=== PATIENT | female | born 1965 | race Two or more races ===

== ENCOUNTER 2016-08-18 07:52 | Day surgery (SDC) | payer MEDICARE ==
[~2016-08-18 07:52] MED LIST: DIPHENHYDRAMINE HCL 50 MG/ML VIAL ONE; EPINEPHRINE INJ 1 MG/10 ML DISP.SYRIN ONE; FLUMAZENIL INJ 0.5 MG/5 ML VIAL IV ONE; GLUCAGON,HUMAN RECOMB 1 MG INJ ONE; MIDAZOLAM 2 MG/2 ML INJ ONE; NALOXONE HCL INJ/PF 0.4 MG/1 ML SDV ONE; ONDANSETRON HCL INJ/PF 4 MG/2 ML SDV ONE
[2016-08-18] MEDS: MIDAZOLAM 2 MG/2 ML INJ ONE ×4 (08:40→08:52)
[2016-08-18] MEDS: FENTANYL CITRATE INJ/PF 100 MCG/2 ML AMPUL ONE ×4 (08:42→09:02)
--- NOTE | 2016-08-18 09:13 | Operative Report ---
Operative Report DATE OF SURGERY: 08/18/16 Operative Report: The risks, benefits and alternatives of the procedure including risks of bleeding, perforation requiring surgery are explained to the patient detail and informed consent was obtained. Patient was taken to the endoscopy suite and placed in the left, lateral decubital position. A rectal examination was done which did not reveal any masses, tears or fissures. Timeout was called. Conscious sedation medications provided. The Olympus videoscope was inserted into the patient's rectum. The scope was then gradually advanced all the way to the cecum. The cecum was identified by the usual anatomical landmarks of the ileocecal valve as well as the appendiceal orifice and photodocumentation was obtained. The scope was then sequentially pulled back. The rest of the colon including the ascending colon, hepatic flexure, transverse colon, splenic flexure, descending colon and finally to the rectosigmoid portions of the colon. Retroflexion maneuver was performed. Prep is good. Photodocumentation was obtained. The risks benefits and alternatives of the procedure explained to the patient in detail and informed consent is obtained. A GIF Olympus video scope was inserted into the patient's mouth and hypopharynx ,the esophagus is identified intubated and insufflated, the scope was then advanced through the esophagus stomach and duodenum ,retroflexion maneuver is done the esophagus stomach and first and second portions of the duodenum examined PREOPERATIVE DIAGNOSIS: Personal history of polyps. Gastroesophageal reflux disease POSTOPERATIVE DIAGNOSIS: Status post gastric bypass operation in the past. Gastritis. Mild left-sided inflammation status post biopsy. Internal hemorrhoids. Likely intra-abdominal adhesions OPERATION: Colonoscopy with biopsy. EGD with biopsy SURGEON: LINDA CAPPS ANESTHESIA: Moderate Sedation - 5 mg of Versed, 125 mcg of fentanyl. Conscious sedation monitoring time 30 minutes. TISSUE REMOVED OR ALTERED: Gastric specimen obtained. colon Mucosal specimen obtained COMPLICATIONS: None. ESTIMATED BLOOD LOSS: None. INTRAOPERATIVE FINDINGS: As described above. No masses, AVMs or diverticulosis noted. Abdominal pressure had to be placed in the area of the splenic flexure careful advancement of the scope. She has a midline abdominal scar she likely has abdominal adhesions causing some difficulty with advancement of the scope. PROCEDURE: Patient tolerated procedure well. No immediate postprocedure complications are noted. Patient is discharged in good condition. Discharge date 08/18/2016. Discharge diet: Regular. Discharge activity: Regular. 2-3 week follow-up to discuss findings. We will wait on pathology. 10 year surveillance should be adequate. Patient is instructed to call the office or proceed to the emergency room should there be any further problems or questions.
[2016-08-18 10:15] VITALS: BP 99/52
== END 2016-08-18 10:15 | disposition home or self-care (01) ==
LOC: END 07:52
PROVIDERS: ATTEND Internal Medicine Gastroenterology
PROC: 0DB68ZX Excision of Stomach, Via Natural or Artificial Opening Endoscopic, Diagnostic (ICD-10-PCS; principal; 2016-08-18 08:30)
PROC: 0DBG8ZX Excision of Left Large Intestine, Via Natural or Artificial Opening Endoscopic, Diagnostic (ICD-10-PCS; 2016-08-18 08:30)
DX: K21.9 Gastro-esophageal reflux disease without esophagitis (principal); K92.1 Melena; K52.9 Noninfective gastroenteritis and colitis, unspecified; K64.8 Other hemorrhoids; Z98.84 Bariatric surgery status; K29.50 Unspecified chronic gastritis without bleeding; K63.5 Polyp of colon; I10 Essential (primary) hypertension; E55.9 Vitamin D deficiency, unspecified; F41.9 Anxiety disorder, unspecified; K91.2 Postsurgical malabsorption, not elsewhere classified; Y83.8 Other surgical procedures as the cause of abnormal reaction of the patient, or of later complication, without mention of misadventure at the time of the procedure; Y82.8 Other medical devices associated with adverse incidents; Z79.899 Other long term (current) drug therapy
CPT/HCPCS: 43239; 45380; 88342 ×2; 88305 ×2; J2250; J3010; J0171; J1200; J1610; J2310; J2405; J3490

== ENCOUNTER → 2016-12-26 | Outpatient (CLI) | payer MEDICARE | LOC: WI 09:41 | PROVIDERS: ATTEND Family Medicine | DX: N63 Unspecified lump in breast (principal); Z53.8 Procedure and treatment not carried out for other reasons ==

== ENCOUNTER 2017-09-05 10:13 | Emergency (ER) | payer MEDICARE ==
--- NOTE | 2017-09-05 10:39 | ER Document Report ---
ED GI/ - General Stated Complaint: ABDOMINAL PAIN Time Seen by Provider: 09/05/17 10:33 Notes: Patient says that she is experiencing epigastric pain which began this morning while she was taking a walk. Pain is located primarily in the epigastric region , just above the umbilicus. She is vomited 5 times this morning, but does not feel nauseated now. She had a diarrhea bowel movement at about 7 AM. Did not see any blood in either the vomitus or the bowel movement. Patient has experienced pain like this intermittently every few weeks since she had gastric bypass surgery in 2006. She had that procedure performed in [place]. She was last seen by those doctors last January or March. She currently has bottles of medication for constipation and diarrhea and EMS was told patient does have a history of IBS. Also has GERD. Patient has had an abdominal surgery for blockage about 12 years ago. Tubes tied. Cholecystectomy. On scene, patient's son told EMS patient has a history of diverticulitis, but patient does not recognize that word. Denies any chest pains, difficulty breathing or shortness of breath, urinary tract symptoms, or fevers. Insulin-dependent diabetic. History of anxiety. Patient is and speaks good, understandable Mongolian. 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 TRAVEL OUTSIDE OF THE [place] IN LAST 30 DAYS: No - Related Data Allergies/Adverse Reactions: Penicillins Allergy (Severe, Verified 08/18/16 08:28) Anaphylaxis morphine Allergy (Intermediate, Verified 08/18/16 08:28) Generalized rash Past Medical History - Social History Smoking Status: Unknown if Ever Smoked Cigarette use (# per day): No Frequency of alcohol use: None Family History: Reviewed & Not Pertinent - Past Medical History Cardiac Medical History: Reports: Hx Hypertension GI Medical History: Reports: Hx Diverticulitis, Hx Gastroesophageal Reflux Disease, Hx Irritable Bowel Musculoskeltal Medical History: Denies Hx Arthritis Psychiatric Medical History: Reports: Hx Anxiety, Hx Depression Past Surgical History: Reports: Hx Abdominal Surgery, Hx Appendectomy, Hx Cholecystectomy, Hx Gastric Bypass Surgery, Hx Tubal Ligation. Denies: Hx Hysterectomy - Immunizations Hx Diphtheria, Pertussis, Tetanus Vaccination: No Review of Systems - Review of Systems Notes: REVIEW OF SYSTEMS: CONSTITUTIONAL : Denies fever. EENT: Denies eye, ear, nose or mouth or throat pain or other symptoms. CARDIOVASCULAR: Denies chest pain. RESPIRATORY: Denies cough, chest congestion, or shortness of breath. GASTROINTESTINAL: See HPI. GENITOURINARY: Denies difficulty or painful urinating, urinary frequency, blood in urine. MUSCULOSKELETAL: Denies back or neck pain. Denies joint pain or swelling. SKIN: Denies rash or skin lesions. NEUROLOGICAL: Denies LOC or altered mental status. Denies headache. Denies sensory loss or motor deficits. ALL OTHER SYSTEMS REVIEWED AND NEGATIVE. Physical Exam - Vital signs Vitals: Resp Pulse Ox 18 96 09/05/17 10:23 09/05/17 10:23 Interpretation: Normal - Notes Notes: PHYSICAL EXAMINATION: GENERAL: Well-appearing, in no acute distress. Vital signs are all normal. Patient speaks very good Mongolian, but we also have an assistant manager airside operations at the bedside , CARMELA Alcantar. HEAD: Atraumatic, normocephalic. EYES: Pupils equal round and reactive to light, extraocular movements intact. ENT: oropharynx clear without exudates. Moist mucous membranes. NECK: Normal range of motion, supple. LUNGS: Breath sounds clear and equal bilaterally. HEART: Regular rate and rhythm without murmurs. ABDOMEN: Large coalescence of abdominal scars in the midportion of the abdomen. The abdomen is soft, with some tenderness in the epigastrium and just above the umbilicus, but definitely no masses, guarding, or rebound present. No bruits heard. BACK: No tenderness throughout entire back. EXTREMITIES: Normal range of motion without pain. NEUROLOGICAL: Normal speech, normal gait. Normal sensory, motor, and reflex exams. Awake, alert, and oriented x3. Cranial nerves normal. PSYCH: Normal mood, normal affect. SKIN: Warm, dry, no rashes. Course - Re-evaluation Re-evalutation: 09/05/17 13:34 Patient is not drinking her contrast she is only finished one half a bottle thus far. Says she is having pain and vomiting. I gave her medication for vomiting and I do not think she is vomited for quite a time now. I am adding some Compazine 5 mg IV and he will 100 mics IV. Lab studies are all essentially normal. Patient's CT scan shows some mild gas distention in the proximal small bowel, but contrast is seen to go all the way through into the distal small bowel and there is no evidence of obstruction. 09/05/17 17:[address] Mesa, surgeon at [facility]. Advised him of the patient's findings and CT scan results. He offered for the patient to come to the bariatric clinic there at 9 AM tomorrow morning, although her surgeon, Dr. Gallegos , will not be a neck clinic but he will be there Sunday. I advised the patient of these 2 options. - Vital Signs Vital signs: Temp Pulse Resp BP Pulse Ox 16 109/60 97 09/05/17 17:01 09/05/17 17:01 09/05/17 17:01 - Laboratory Result Diagrams: 09/05/17 10:25 09/05/17 11:35 Laboratory results interpreted by me: 09/05/17 09/05/17 09/05/17 10:25 11:12 11:35 RDW 14.4 H Glucose 196 H AST 39 H Urine Glucose (UA) >=500 H Urine Urobilinogen 2.0 H Ur Leukocyte Esterase SMALL H Discharge - Discharge Clinical Impression: Abdominal pain Condition: Stable Disposition: HOME, SELF-CARE Additional Instructions: ABDOMINAL PAIN: There are many causes of abdominal pain. Pain can mean a serious problem requiring surgery (such as appendicitis). It can also be an innocent problem that goes away on its own (such as a viral infection). Often, time must pass to determine the cause of pain. The physician does not feel that hospitalization is necessary, at present. Things may change within the next 24 hours. Call the doctor or come back for re- examination if any problems occur, such as: (1) Pain that becomes more severe, steady, or becomes concentrated in one specific area. Also, pain that is more severe with movement or coughing. (2) Vomiting that persists or becomes more frequent. (3) Blood in the vomitus, urine, or bowel movements. Blood in the stool may have a tarry or black appearance. (4) Shaking chills or fever greater than 100 degrees F. (5) The abdomen becomes more distended or swollen. (6) Bowel movements cease. (7) Failure to improve as expected. NORMAL EXAM AND WORKUP: At this time, your examination and workup show no significant abnormality. No significant abnormal physical findings are noted. All laboratory, EKG, and imaging (x-ray, CT scans, ultrasound) studies that were ordered show no significant abnormality. Although your examination and all studies that were ordered showed no significant abnormal finding, there are no examinations and no studies that are 100% accurate. There is always the possibility that some abnormality could exist and not be detected with physical examination or within the limits and capabilities of laboratory and other studies. You should return or follow up as you were instructed on your visit today for further evaluation if your symptoms do not resolve. PAIN MEDICATION INJECTION: You have received an injection of a pain medication. You should experience significant pain relief within 45 minutes. This drug is a narcotic - - it will impair your judgement, slow your reaction time and make you sleepy ( as well as relieve your pain). Narcotics also can cause nausea. You should not drive, work with machinery, or perform any task requiring mental alertness until all effects of the medication are gone -- six to eight hours. Do not take any alcohol, or sedatives, and do not take any other medication without checking with your physician. ANTINAUSEA MEDICATION: You have been given a medication to suppress nausea and vomiting. This type of medication can be given as a shot, pill, or suppository. It will usually last for many hours. Pills and shots usually last six to eight hours, suppositories last about 12 hours. For the typical illness, only one or two doses of the medication may be necessary. Mild lightheadedness may occur. This type of medicine can cause drowsiness. Do not drive or operate dangerous machinery while under its influence. Do not mix with alcohol. See your doctor at once if you have muscle spasms or tightness, or uncontrollable motions (particularly of the neck, mouth, or jaw). Persistent vomiting or severe lightheadedness should also be evaluated by the physician. ANTISPASMODICS: You have been given a prescription for an antispasmodic medicine. This type of drug is used to decrease cramping and pain in the intestines. It is also used to decrease secretion of internal fluids (such as stomach acid in ulcer disease or pancreatic juice in pancreas disease). This medicine may cause drowsiness, especially with the first dose. Do not operate machinery or drive until all side effects have resolved. Do not combine with alcohol. Other common side effects include dry mouth and eyes. In older persons, antispasmodics can occasionally cause urinary retention, constipation, or trouble focusing the eyes. Glaucoma may be worsened by this medicine. FOLLOW-UP CARE: If you have been referred to a physician for follow-up care, call the physician s office for an appointment as you were instructed or within the next two days. If you experience worsening or a significant change in your symptoms, notify the physician immediately or return to the Emergency Department at any time for re-evaluation. The bariatric clinic at [facility] in [place] is open at 9 AM tomorrow morning at [address] Gallegos will be in the clinic on Sunday, but they can see you in the clinic tomorrow if you are still having significant pain. The address for that clinic is [address] [place] [address] in [place] and their telephone number is [phone]. Prescriptions: Dicyclomine HCl [Bentyl 20 mg Tablet] 20 mg PO QID PRN #15 tablet PRN Reason: Abdominal pain Promethazine HCl [Phenergan 25 mg Tablet] 1 - 2 tab PO Q6H PRN #15 tablet PRN Reason: Referrals: DOMINGO HAN, [Primary Care Provider] - Follow up as needed
[2017-09-05] MEDS ORDERED: FAMOTIDINE INJ/PF 20 MG/2 ML SDV IV ONE (10:44)
[2017-09-05] MEDS ORDERED: RINGERS SOLUTION,LACTATED 1,000 ML IV ONE (10:44)
[2017-09-05] MEDS ORDERED: METOCLOPRAMIDE HCL INJ/PF 10 MG/2 ML SDV IV ONE ×2 (10:45→11:24)
[2017-09-05] MEDS ORDERED: DIPHENHYDRAMINE HCL 50 MG/ML VIAL IV ONE (10:45)
[2017-09-05 11:06] LABS: ABSOLUTE EOSINOPHILS # (AUTO) 0.1 10^3/uL (0.0-0.6); ABSOLUTE LYMPHOCYTES (AUTO) 1.3 10^3/uL (0.5-4.7); ABSOLUTE MONOCYTES (AUTO) 0.4 10^3/uL (0.1-1.4); ABSOLUTE NEUT (AUTO) 5.8 10^3/uL (1.7-8.2); BASOPHILS % (AUTO) 0.4 % (0-2); EOSINOPHILS % (AUTO) 0.8 % (0-6); HEMATOCRIT 42.1 % (36.0-47.0); HEMOGLOBIN 14.7 g/dL (12.0-15.5); MEAN CORPUSCULAR HEMOGLOBIN 30.3 pg (27.0-33.4); MEAN CORPUSCULAR HGB CONC 34.9 g/dL (32.0-36.0); MEAN CORPUSCULAR VOLUME 87 fl (80-97); MONOCYTES % (AUTO) 5.4 % (3-13); PLATELET COUNT 201 10^3/uL (150-450); RED BLOOD COUNT 4.85 10^6/uL (3.72-5.28); RED CELL DISTRIBUTION WIDTH 14.4 % (11.5-14.0); SEGMENTED NEUTROPHILS % (AUTO) 76.4 % (42-78); TOTAL CELLS COUNTED % (AUTO) 100 %; WHITE BLOOD COUNT 7.6 10^3/uL (4.0-10.5)
[2017-09-05] MEDS ORDERED: ONDANSETRON HCL INJ/PF 4 MG/2 ML SDV IV ONE (11:24)
[2017-09-05 11:41] LABS: APPEARANCE,URINE SLIGHTLY-CLOUDY; BILIRUBIN,URINE NEGATIVE (NEGATIVE); COLOR,URINE YELLOW; GLUCOSE, URINE >=500 mg/dL (NEGATIVE); KETONES,URINE NEGATIVE (NEGATIVE); LEUKOCYTE ESTERASE,URINE SMALL (NEGATIVE); NITRITE,URINE NEGATIVE (NEGATIVE); PROTEIN,URINE NEGATIVE (NEGATIVE); URINE SPECIFIC GRAVITY 1.028
[2017-09-05 11:59] LABS: ALANINE AMINOTRANSFERASE 48 U/L (9-52); ALBUMIN 4.1 g/dL (3.5-5.0); ALKALINE PHOSPHATASE 93 U/L (38-126); ANION GAP 12 (5-19); ASPARTATE AMINO TRANSFERASE 39 U/L (14-36); BILIRUBIN,DIRECT 0.3 mg/dL (0.0-0.4); BILIRUBIN,TOTAL 0.5 mg/dL (0.2-1.3); BLOOD UREA NITROGEN 11 mg/dL (7-20); CALCIUM 9.4 mg/dL (8.4-10.2); CARBON DIOXIDE 27 mmol/L (22-30); CHLORIDE 103 mmol/L (98-107); GLUCOSE 196 mg/dL (75-110); LIPASE 152.3 U/L (23-300); POTASSIUM 3.6 mmol/L (3.6-5.0); SODIUM 141.7 mmol/L (137-145); TOTAL PROTEIN 6.6 g/dL (6.3-8.2)
[2017-09-05] MEDS ORDERED: PROCHLORPERAZINE EDISYLATE INJ 10 MG/2 ML VIAL IV ONE (13:31)
[2017-09-05] MEDS ORDERED: FENTANYL CITRATE INJ/PF 100 MCG/2 ML AMPUL IV ONE (13:31)
--- NOTE | 2017-09-05 14:53 | RADIOLOGY REPORT (SQ) ---
EXAM DESCRIPTION: CT ABD/PELVIS WITH IV ORAL COMPLETED DATE/TIME: 09/05/2017 2:32 pm REASON FOR STUDY: Epigastric pain; Hx IBS, gastric bypass COMPARISON: 02/25/2016. TECHNIQUE: CT scan of the abdomen and pelvis performed with intravenous and oral contrast using marcello raimundo scanning technique with dynamic intravenous contrast injection. Images reviewed with lung, soft t issue, and bone windows. Reconstructed coronal and sagittal MPR images reviewed. Delayed images for e valuation of the urinary system also acquired. All images stored on PACS. All CT scanners at this facility use dose modulation, iterative reconstruction, and/or weight based d osing when appropriate to reduce radiation dose to as low as reasonably achievable (ALARA). [facility]: Dose Right [facility]: CareDose [facility]: Dose Right [facility]: Teradose 4D [facility]: Sustainability Roundtable CONTRAST TYPE AND DOSE: contrast/concentration: Isovue 370.00 mg/ml; Total Contrast Delivered: 83.0 ml; Total Saline Delivered: 68.0 ml RENAL FUNCTION: BUN 11 creatinine 0.6. RADIATION DOSE: CT Rad equipment meets quality standard of care and radiation dose reduction techniq ues were employed. CTDIvol: 15.6 - 19.3 mGy. DLP: 2041 mGy-cm.. LIMITATIONS: None. FINDINGS: LOWER CHEST: No significant findings. No nodules or infiltrates. LIVER: Normal size. Diffuse fatty infiltration. No masses. No dilated ducts. SPLEEN: Normal size. No focal lesions. PANCREAS: No masses. No significant calcifications. No adjacent inflammation or peripancreatic fluid collections. Pancreatic duct not dilated. GALLBLADDER: No identified stones by CT criteria. No inflammatory changes to suggest cholecystitis. ADRENAL GLANDS: No significant masses or asymmetry. RIGHT KIDNEY AND URETER: Chronic cortical scarring. No solid masses. No significant calcification. N o hydronephrosis or hydroureter. LEFT KIDNEY AND URETER: No solid masses. No significant calcification. No hydronephrosis or hydrouret er. AORTA AND VESSELS: No aneurysm. No dissection. Renal arteries, SMA, celiac without stenosis. RETROPERITONEUM: No retroperitoneal adenopathy, hemorrhage or masses. BOWEL AND PERITONEAL CAVITY: Stable surgical changes of previous gastric bypass. Mild dilation of th e proximal small bowel, similar to the prior study. Contrast is present in the proximal and distal s mall bowel. No visualized masses. No free fluid. No inflammatory changes or thickening of bowel wall . APPENDIX: Not visualized. PELVIS: No significant masses. Normal bladder. No free fluid. ABDOMINAL WALL: No masses. No hernias. BONES: No significant or acute findings. OTHER: No other significant finding. IMPRESSION: PREVIOUS GASTRIC BYPASS. AGAIN SEEN IS MILD DILATION OF THE PROXIMAL SMALL BOWEL. CONT RAST DOES PASS INTO THE DISTAL SMALL BOWEL AND THERE IS NO EVIDENCE OF SIGNIFICANT OBSTRUCTION. OTHE R CHRONIC FINDINGS ABOVE. NO OTHER SIGNIFICANT OR ACUTE FINDINGS IN THE ABDOMEN OR PELVIS. TECHNICAL DOCUMENTATION: JOB ID: [id number] Quality ID # [id number]: Final reports with documentation of one or more dose reduction techniques (e.g., Au tomated exposure control, adjustment of the mA and/or kV according to patient size, use of iterative reconstruction technique) 2010 [employer]- All Rights Reserved Reading location - IP/workstation name: [email or web address]
[2017-09-05 17:48] VITALS: BP 109/60
== END 2017-09-05 17:48 | disposition home or self-care (01) ==
LOC: ER 10:13
DX: R10.13 Epigastric pain (principal); R11.10 Vomiting, unspecified; R19.7 Diarrhea, unspecified; E11.9 Type 2 diabetes mellitus without complications; Z98.84 Bariatric surgery status; Z79.4 Long term (current) use of insulin; Z88.6 Allergy status to analgesic agent; Z90.49 Acquired absence of other specified parts of digestive tract
CPT/HCPCS: 96376; 99285; 96361; 96374; 96375; 36415; 83690; 85025; 80053; 81001; 74177; J1200; J3010; J2765; J0780; J2405; J7120; S0028

== ENCOUNTER 2017-09-06 18:13 | Emergency (ER) | payer MEDICARE ==
[2017-09-06] MEDS ORDERED: FENTANYL CITRATE INJ/PF 100 MCG/2 ML AMPUL IV ONE ×2 (20:43→22:52)
[2017-09-06] MEDS ORDERED: MAG HYDROX/AL HYDROX/SIMETH SUSP 30 ML UDCUP PO ONE (20:43)
[2017-09-06] MEDS ORDERED: ONDANSETRON HCL INJ/PF 4 MG/2 ML SDV IV ONE (20:43)
[2017-09-06] MEDS ORDERED: LIDOCAINE 2% VISCOUS SOLN 20 ML UDCUP PO ONE (20:43)
[2017-09-06] MEDS ORDERED: METOCLOPRAMIDE HCL ORAL SOLN 10 MG/10 ML UDCUP PO ONE (20:43)
--- NOTE | 2017-09-06 20:53 | ER Document Report ---
ED General - General Chief Complaint: Abdominal Pain Stated Complaint: ABDOMINAL PAIN, NAUSEA, VOMITING Time Seen by Provider: 09/06/17 20:31 Mode of Arrival: Medic Information source: Patient Notes: 51-year-old female presents the emergency department by EMS for abdominal pain. Patient describes the pain as a diffuse cramping, aching sensation. No radiation of the pain. No alleviating or exacerbating factors. Patient was seen in the emergency department yesterday for similar complaints. Patient had labs and imaging done. No acute process was identified. Mild small bowel dilation seen without signs of obstruction. Patient was discharged home and told to follow-up with her GI physician in [place], Dr. Gallegos. Patient's family state that they were unable to get her to see Dr. Gallegos because of worsening pain. Family contacted the office and was told that the next appointment was in a week. Patient has a history of gastric bypass surgery done in 2006. Patient has had similar episodes of abdominal pain intermittently since this operation. Having associated nausea and vomiting. Denies diarrhea, constipation , dysuria, hematuria. TRAVEL OUTSIDE OF THE [place] IN LAST 30 DAYS: No - HPI Onset: This morning Onset/Duration: Gradual Quality of pain: Achy, Cramping Severity: Severe Associated symptoms: Nausea, Vomiting. denies: Diarrhea Exacerbated by: Denies Relieved by: Denies Similar symptoms previously: Yes Recently seen / treated by doctor: Yes - Seen in the ED yesterday for similar symptoms. - Related Data Allergies/Adverse Reactions: Penicillins Allergy (Severe, Verified 09/06/17 18:17) Anaphylaxis morphine Allergy (Intermediate, Verified 09/06/17 18:17) Generalized rash Past Medical History - Social History Smoking Status: Never Smoker Chew tobacco use (# tins/day): No Frequency of alcohol use: None Drug Abuse: None Family History: Reviewed & Not Pertinent Patient has suicidal ideation: No Patient has homicidal ideation: No - Past Medical History Cardiac Medical History: Reports: Hx Hypertension Denies: Hx Coronary Artery Disease, Hx Heart Attack Pulmonary Medical History: Denies: Hx Asthma, Hx Bronchitis, Hx COPD, Hx Pneumonia Neurological Medical History: Denies: Hx Cerebrovascular Accident, Hx Seizures Renal/ Medical History: Denies: Hx Peritoneal Dialysis GI Medical History: Reports: Hx Diverticulitis, Hx Gastroesophageal Reflux Disease, Hx Irritable Bowel Musculoskeltal Medical History: Denies Hx Arthritis Psychiatric Medical History: Reports: Hx Anxiety, Hx Depression Past Surgical History: Reports: Hx Abdominal Surgery, Hx Appendectomy, Hx Cholecystectomy, Hx Gastric Bypass Surgery, Hx Tubal Ligation. Denies: Hx Hysterectomy - Immunizations Hx Diphtheria, Pertussis, Tetanus Vaccination: No Review of Systems - Review of Systems Constitutional: No symptoms reported EENT: No symptoms reported Cardiovascular: No symptoms reported Respiratory: No symptoms reported Gastrointestinal: Abdominal pain, Nausea, Vomiting Genitourinary: No symptoms reported Female Genitourinary: No symptoms reported Musculoskeletal: No symptoms reported Skin: No symptoms reported Hematologic/Lymphatic: No symptoms reported Neurological/Psychological: No symptoms reported -: Yes All other systems reviewed and negative Physical Exam - Vital signs Vitals: Temp Pulse Resp BP Pulse Ox 97.9 F 78 18 139/69 H 94 09/06/17 18:25 09/06/17 18:25 09/06/17 18:25 09/06/17 18:25 09/06/17 18:25 Interpretation: Normal - Notes Notes: PHYSICAL EXAMINATION: GENERAL: Well-appearing, well-nourished and in no acute distress. HEAD: Atraumatic, normocephalic. EYES: Pupils equal round and reactive to light, extraocular movements intact, conjunctiva are normal. ENT: Nares patent, oropharynx clear without exudates. Moist mucous membranes. NECK: Normal range of motion, supple without lymphadenopathy LUNGS: Breath sounds clear to auscultation bilaterally and equal. No wheezes rales or rhonchi. HEART: Regular rate and rhythm without murmurs ABDOMEN: Soft, diffuse tenderness to palpation, nondistended abdomen. No guarding, no rebound. Multiple surgical scars on the abdomen. Decreased bowel sounds. Female : deferred Musculoskeletal: Normal range of motion, no pitting or edema. No cyanosis. NEUROLOGICAL: Cranial nerves grossly intact. Normal speech, normal gait. Normal sensory, motor exams PSYCH: Normal mood, normal affect. SKIN: Warm, Dry, normal turgor, no rashes or lesions noted. Course - Re-evaluation Re-evalutation: 09/06/17 22:52 On re-evaluation, patient says that her pain has improved. She's feeling much better. I discussed the labs and abdominal XR with the patient. Labs are WNL and XR does not show an acute process. Patient is agreeable with discharge but wants another dose of pain medication prior to leaving. 09/06/17 23:44 Patient re-evaluated. Feeling better. Pain, nausea, vomiting have resolved. Patient feels comfortable with discharge home and following up with her GI physician outpatient. Patient told to take the bentyl and phenergan as prescribed for symptom relief. 09/06/17 23:47 - Vital Signs Vital signs: Temp Pulse Resp BP Pulse Ox 97.9 F 78 18 139/69 H 94 09/06/17 18:25 09/06/17 18:25 09/06/17 18:25 09/06/17 18:25 09/06/17 18:25 - Laboratory Result Diagrams: 09/06/17 22:47 09/06/17 22:47 Laboratory results interpreted by me: 09/06/17 09/06/17 09/06/17 22:08 22:47 22:47 WBC 12.7 H RDW 14.2 H Seg Neutrophils % 89.8 H Lymphocytes % 6.7 L Absolute Neutrophils 11.4 H Glucose 243 H AST 52 H ALT 56 H Urine Glucose (UA) >=500 H Urine Ketones 20 H Ur Leukocyte Esterase SMALL H Discharge - Discharge Clinical Impression: Abdominal pain Qualifiers: Abdominal location: generalized Qualified Code(s): R10.84 - Generalized abdominal pain Vomiting Qualifiers: Vomiting type: unspecified Vomiting Intractability: non-intractable Nausea presence: with nausea Qualified Code(s): R11.2 - Nausea with vomiting, unspecified Condition: Stable Disposition: HOME, SELF-CARE Instructions: Abdominal Pain ([facility]), Vomiting ([facility]) Additional Instructions: Take medication prescribed as directed. Follow up with your primary care physician and GI physician as needed. Return to the Emergency department for worsening symptoms. Referrals: DOMINGO HAN DO [Primary Care Provider] - Follow up as needed
--- NOTE | 2017-09-06 21:28 | RADIOLOGY REPORT (SQ) ---
EXAM DESCRIPTION: ABDOMEN 2 VIEWS COMPLETED DATE/TIME: 09/06/2017 9:20 pm REASON FOR STUDY: abdominal pain COMPARISON: 02/25/2016 NUMBER OF VIEWS: Two views. TECHNIQUE: Supine and erect/decubitus radiographic images of the abdomen acquired. LIMITATIONS: None. FINDINGS: FREE AIR: None. No abnormal gas collections. LUNG BASES: Clear. BOWEL GAS PATTERN: Nonobstructive pattern. No dilated loops or air fluid levels. CALCIFICATIONS: No suspicious calcifications. SOFT TISSUES: No gross mass or suggestion of organomegaly. HARDWARE: Stable. BONES: No acute fracture. No worrisome bone lesions. OTHER: No other significant finding. IMPRESSION: NO RADIOGRAPHIC EVIDENCE FOR ACUTE ABDOMINAL DISEASE. TECHNICAL DOCUMENTATION: JOB ID: [id number] [employer]- All Rights Reserved Reading location - IP/workstation name: [email or web address]
[2017-09-06 22:28] LABS: APPEARANCE,URINE SLIGHTLY-CLOUDY; BILIRUBIN,URINE NEGATIVE (NEGATIVE); COLOR,URINE YELLOW; GLUCOSE, URINE >=500 mg/dL (NEGATIVE); KETONES,URINE 20 mg/dL (NEGATIVE); LEUKOCYTE ESTERASE,URINE SMALL (NEGATIVE); NITRITE,URINE NEGATIVE (NEGATIVE); PROTEIN,URINE NEGATIVE (NEGATIVE); URINE SPECIFIC GRAVITY 1.027; UROBILINOGEN,URINE NEGATIVE mg/dL (<2.0)
[2017-09-06 22:59] LABS: ABSOLUTE LYMPHOCYTES (AUTO) 0.9 10^3/uL (0.5-4.7); ABSOLUTE MONOCYTES (AUTO) 0.4 10^3/uL (0.1-1.4); ABSOLUTE NEUT (AUTO) 11.4 10^3/uL (1.7-8.2); BASOPHILS % (AUTO) 0.4 % (0-2); HEMOGLOBIN 14.8 g/dL (12.0-15.5); LYMPHOCYTES % (AUTO) 6.7 % (13-45); MEAN CORPUSCULAR HEMOGLOBIN 30.1 pg (27.0-33.4); MEAN CORPUSCULAR HGB CONC 34.5 g/dL (32.0-36.0); MEAN CORPUSCULAR VOLUME 87 fl (80-97); MONOCYTES % (AUTO) 3.1 % (3-13); PLATELET COUNT 197 10^3/uL (150-450); RED BLOOD COUNT 4.94 10^6/uL (3.72-5.28); RED CELL DISTRIBUTION WIDTH 14.2 % (11.5-14.0); SEGMENTED NEUTROPHILS % (AUTO) 89.8 % (42-78); TOTAL CELLS COUNTED % (AUTO) 100 %; WHITE BLOOD COUNT 12.7 10^3/uL (4.0-10.5)
[2017-09-06 23:16] LABS: ALANINE AMINOTRANSFERASE 56 U/L (9-52); ALBUMIN 4.7 g/dL (3.5-5.0); ALKALINE PHOSPHATASE 107 U/L (38-126); ANION GAP 14 (5-19); ASPARTATE AMINO TRANSFERASE 52 U/L (14-36); BILIRUBIN,DIRECT 0.3 mg/dL (0.0-0.4); BILIRUBIN,TOTAL 0.7 mg/dL (0.2-1.3); BLOOD UREA NITROGEN 11 mg/dL (7-20); CALCIUM 9.6 mg/dL (8.4-10.2); CARBON DIOXIDE 27 mmol/L (22-30); CHLORIDE 102 mmol/L (98-107); GLUCOSE 243 mg/dL (75-110); LIPASE 238.4 U/L (23-300); POTASSIUM 3.9 mmol/L (3.6-5.0); SODIUM 142.9 mmol/L (137-145); TOTAL PROTEIN 7.5 g/dL (6.3-8.2)
[2017-09-07 01:03] VITALS: BP 122/77
== END 2017-09-07 00:56 | disposition home or self-care (01) ==
LOC: ER 18:13
DX: R10.84 Generalized abdominal pain (principal); R11.2 Nausea with vomiting, unspecified; Z98.84 Bariatric surgery status; I10 Essential (primary) hypertension
CPT/HCPCS: 96376; 99284; 96374; 96375; 36415; 83690; 85025; 80053; 81001; 74019; J3010; J3490; A9270; J2405

== ENCOUNTER → 2017-11-24 | Outpatient (CLI) | payer SELFPAY | LOC: LAB 15:14 | PROVIDERS: ATTEND Nurse Practitioner Family | DX: R30.0 Dysuria (principal) | CPT/HCPCS: 87086; 87088; 87186 ==

== ENCOUNTER 2018-01-16 17:33 | Observation (INO) | payer MEDICARE ==
[2018-01-16] MEDS ORDERED: FENTANYL CITRATE INJ/PF 100 MCG/2 ML AMPUL IV ONE (18:18)
[2018-01-16] MEDS ORDERED: NORMAL SALINE 1000 ML 1,000 ML IV ONE ×2 (18:18→20:36)
[2018-01-16] MEDS ORDERED: ONDANSETRON HCL INJ/PF 4 MG/2 ML SDV IV ONE (18:18)
--- NOTE | 2018-01-16 18:21 | ER Document Report ---
ED Medical Screen (RME) - General Chief Complaint: Abdominal Pain Stated Complaint: ABDOMINAL PAIN Time Seen by Provider: 01/16/18 18:18 Notes: 52 years old female presents today with mid abdominal pain radiating the back since this morning. Associated with nausea and loose bowel movement. No fever chills or other constitutional symptoms. Denies any dysuria frequency urgency. She had gastric bypass surgery The gastric bypass surgery was repaired 4 times since the surgery. TRAVEL OUTSIDE OF THE [place] IN LAST 30 DAYS: No - Related Data Allergies/Adverse Reactions: Penicillins Allergy (Severe, Verified 09/06/17 18:17) Anaphylaxis morphine Allergy (Intermediate, Verified 09/06/17 18:17) Generalized rash Past Medical History - Social History Frequency of alcohol use: None Drug Abuse: None - Past Medical History Cardiac Medical History: Reports: Hx Hypertension Denies: Hx Coronary Artery Disease, Hx Heart Attack Pulmonary Medical History: Denies: Hx Asthma, Hx Bronchitis, Hx COPD, Hx Pneumonia Neurological Medical History: Denies: Hx Cerebrovascular Accident, Hx Seizures Renal/ Medical History: Denies: Hx Peritoneal Dialysis GI Medical History: Reports: Hx Diverticulitis, Hx Gastroesophageal Reflux Disease, Hx Irritable Bowel Musculoskeltal Medical History: Denies Hx Arthritis Psychiatric Medical History: Reports: Hx Anxiety, Hx Depression Past Surgical History: Reports: Hx Abdominal Surgery, Hx Appendectomy, Hx Cholecystectomy, Hx Gastric Bypass Surgery, Hx Tubal Ligation. Denies: Hx Hysterectomy - Immunizations Hx Diphtheria, Pertussis, Tetanus Vaccination: No Physical Exam - Vital signs Vitals: Temp Pulse Resp BP Pulse Ox 98.6 F 76 16 130/71 H 96 01/16/18 17:46 01/16/18 17:46 01/16/18 17:46 01/16/18 17:46 01/16/18 17:46 Course - Vital Signs Vital signs: Temp Pulse Resp BP Pulse Ox 98.6 F 76 16 130/71 H 96 01/16/18 17:46 01/16/18 17:46 01/16/18 17:46 01/16/18 17:46 01/16/18 17:46 Doctor's Discharge - Discharge Referrals: MICHELLE SADLER, [employer] [Primary Care Provider] - Follow up as needed
[2018-01-16 19:06] LABS: ABSOLUTE LYMPHOCYTES (AUTO) 0.8 10^3/uL (0.5-4.7); ABSOLUTE MONOCYTES (AUTO) 0.3 10^3/uL (0.1-1.4); BASOPHILS % (AUTO) 0.2 % (0-2); EOSINOPHILS % (AUTO) 0.1 % (0-6); HEMATOCRIT 43.9 % (36.0-47.0); HEMOGLOBIN 15.1 g/dL (12.0-15.5); MEAN CORPUSCULAR HEMOGLOBIN 30.4 pg (27.0-33.4); MEAN CORPUSCULAR HGB CONC 34.5 g/dL (32.0-36.0); MEAN CORPUSCULAR VOLUME 88 fl (80-97); MONOCYTES % (AUTO) 3.1 % (3-13); PLATELET COUNT 200 10^3/uL (150-450); RED BLOOD COUNT 4.99 10^6/uL (3.72-5.28); RED CELL DISTRIBUTION WIDTH 14.5 % (11.5-14.0); SEGMENTED NEUTROPHILS % (AUTO) 87.6 % (42-78); TOTAL CELLS COUNTED % (AUTO) 100 %; WHITE BLOOD COUNT 9.2 10^3/uL (4.0-10.5)
[2018-01-16 19:11] LABS: APPEARANCE,URINE SLIGHTLY-CLOUDY; BILIRUBIN,URINE NEGATIVE (NEGATIVE); COLOR,URINE YELLOW; GLUCOSE, URINE >=500 mg/dL (NEGATIVE); KETONES,URINE TRACE mg/dL (NEGATIVE); LEUKOCYTE ESTERASE,URINE NEGATIVE (NEGATIVE); NITRITE,URINE NEGATIVE (NEGATIVE); PROTEIN,URINE NEGATIVE (NEGATIVE)
[2018-01-16 19:21] LABS: ALANINE AMINOTRANSFERASE 34 U/L (9-52); ALBUMIN 4.7 g/dL (3.5-5.0); ALKALINE PHOSPHATASE 100 U/L (38-126); ANION GAP 11 (5-19); ASPARTATE AMINO TRANSFERASE 33 U/L (14-36); BILIRUBIN,DIRECT 0.3 mg/dL (0.0-0.4); BILIRUBIN,TOTAL 0.9 mg/dL (0.2-1.3); BLOOD UREA NITROGEN 10 mg/dL (7-20); CALCIUM 9.5 mg/dL (8.4-10.2); CARBON DIOXIDE 29 mmol/L (22-30); CHLORIDE 101 mmol/L (98-107); GLUCOSE 162 mg/dL (75-110); LIPASE 116.4 U/L (23-300); POTASSIUM 4.8 mmol/L (3.6-5.0); SODIUM 140.9 mmol/L (137-145); TOTAL PROTEIN 7.6 g/dL (6.3-8.2)
--- NOTE | 2018-01-16 19:56 | ER Document Report ---
ED GI/ - General Chief Complaint: Abdominal Pain Stated Complaint: ABDOMINAL PAIN Time Seen by Provider: 01/16/18 18:18 Mode of Arrival: Ambulatory Information source: Patient TRAVEL OUTSIDE OF THE [place] IN LAST 30 DAYS: No - HPI Patient complains to provider of: Abdominal pain Onset: Just prior to arrival Timing/Duration: Sudden Quality of pain: Cramping, Dull Severity at maximum: Moderate Severity in ED: Moderate Pain Level: 3 Location: Epigastric Vaginal bleeding (Compared to normal period): None OB ultrasound done: No vitamins taken: No Associated symptoms: Nausea, Vomiting Exacerbated by: Denies Relieved by: Denies Similar symptoms previously: No Recently seen / treated by doctor: No - Related Data Allergies/Adverse Reactions: Penicillins Allergy (Severe, Verified 01/17/18 02:29) Anaphylaxis morphine Allergy (Intermediate, Verified 01/17/18 02:29) Generalized rash Past Medical History - Social History Smoking Status: Former Smoker Frequency of alcohol use: None Drug Abuse: None Family History: Reviewed & Not Pertinent Patient has suicidal ideation: No Patient has homicidal ideation: No - Past Medical History Cardiac Medical History: Reports: Hx Hypertension Denies: Hx Coronary Artery Disease, Hx Heart Attack Pulmonary Medical History: Denies: Hx Asthma, Hx Bronchitis, Hx COPD, Hx Pneumonia Neurological Medical History: Denies: Hx Cerebrovascular Accident, Hx Seizures Renal/ Medical History: Denies: Hx Peritoneal Dialysis GI Medical History: Reports: Hx Diverticulitis, Hx Gastroesophageal Reflux Disease, Hx Irritable Bowel Musculoskeletal Medical History: Denies Hx Arthritis Psychiatric Medical History: Reports: Hx Anxiety, Hx Depression Past Surgical History: Reports: Hx Abdominal Surgery, Hx Appendectomy, Hx Cholecystectomy, Hx Gastric Bypass Surgery, Hx Tubal Ligation. Denies: Hx Hysterectomy - Immunizations Hx Diphtheria, Pertussis, Tetanus Vaccination: No Review of Systems - Review of Systems Constitutional: No symptoms reported EENT: No symptoms reported Cardiovascular: No symptoms reported Respiratory: No symptoms reported Gastrointestinal: Abdominal pain, Nausea, Vomiting Genitourinary: No symptoms reported Female Genitourinary: No symptoms reported Musculoskeletal: No symptoms reported Skin: No symptoms reported Hematologic/Lymphatic: No symptoms reported Neurological/Psychological: No symptoms reported -: Yes All other systems reviewed and negative Physical Exam - Vital signs Vitals: Temp Pulse Resp BP Pulse Ox 98.6 F 76 16 130/71 H 96 01/16/18 17:46 01/16/18 17:46 01/16/18 17:46 01/16/18 17:46 01/16/18 17:46 Interpretation: Normal - General General appearance: Appears well, Alert In distress: Mild - HEENT Head: Normocephalic, Atraumatic Eyes: Normal Pupils: PERRL - Respiratory Respiratory status: No respiratory distress Chest status: Nontender Breath sounds: Normal Chest palpation: Normal - Cardiovascular Rhythm: Regular Heart sounds: Normal auscultation Murmur: No - Abdominal Inspection: Normal Distension: No distension Bowel sounds: Normal Tenderness: Tender - Epigastric tenderness to palpation. Organomegaly: No organomegaly - Back Back: Normal, Nontender - Extremities General upper extremity: Normal inspection, Nontender, Normal color, Normal ROM , Normal temperature General lower extremity: Normal inspection, Nontender, Normal color, Normal ROM , Normal temperature, Normal weight bearing. No: Gina's sign - Neurological Neuro grossly intact: Yes Cognition: Normal Orientation: AAOx4 [place] Coma Scale Eye Opening: Spontaneous [place] Coma Scale Verbal: Oriented [place] Coma Scale Motor: Obeys Commands [place] Coma Scale Total: 15 Speech: Normal Motor strength normal: LUE, RUE, LLE, RLE Sensory: Normal - Psychological Associated symptoms: Normal affect, Normal mood - Skin Skin Temperature: Warm Skin Moisture: Dry Skin Color: Normal Course - Vital Signs Vital signs: Temp Pulse Resp BP Pulse Ox 97.7 F 95 16 119/70 95 01/17/18 01:52 01/17/18 01:52 01/17/18 01:52 01/17/18 01:52 01/17/18 01:52 - Laboratory Result Diagrams: 01/16/18 18:36 01/16/18 18:36 Laboratory results interpreted by me: 01/16/18 01/16/18 01/16/18 18:36 18:36 18:36 RDW 14.5 H Seg Neutrophils % 87.6 H Lymphocytes % 9.0 L Glucose 162 H Urine Glucose (UA) >=500 H Urine Ketones TRACE H Urine Urobilinogen 2.0 H - Diagnostic Test Radiology reviewed: Image reviewed, Reports reviewed - EKG Interpretation by Me EKG shows normal: Sinus rhythm Rate: Normal - 99 Rhythm: NSR [place]/QRS: Left axis deviation When compared to previous EKG there are: Previous EKG unavailable Additional EKG results interpreted by me: 01/17/18 01:00 No STEMI. - Consults No standard instances Time consulted: 12:00 Reason for consultation: 01/17/18 00:57 Consulted the surgeon chief information security officer Dr. Soriano. He will admit the patient to the hospital for observation. - Transfer of Care Notes: 01/17/18 00:[address] Mesa who is chief information security officer for Dr. Gallegos advised [facility]. He said they do not have bed available advised and currently recommended we admit the patient for observation until bed opens up tomorrow. Discharge - Discharge Clinical Impression: Partial small bowel obstruction Vomiting Qualifiers: Vomiting type: unspecified Vomiting Intractability: intractable Nausea presence : with nausea Qualified Code(s): R11.2 - Nausea with vomiting, unspecified Abdominal pain Qualifiers: Abdominal location: epigastric Qualified Code(s): R10.13 - Epigastric pain Condition: Stable Disposition: ADMITTED OBSERVATION Admitting Provider: Surgicalist - Dr Lida Soriano. Unit Admitted: Surgical Floor
[2018-01-16] MEDS ORDERED: HYDROMORPHONE HCL INJ/PF 2 MG/ML AMPULE IV ONE (20:35)
--- NOTE | 2018-01-16 20:37 | RADIOLOGY REPORT (SQ) ---
EXAM DESCRIPTION: CT ABD/PELVIS WITH IV ONLY COMPLETED DATE/TIME: 01/16/2018 8:20 pm REASON FOR STUDY: Abdominal pain r/o obstruction, status post GBS COMPARISON: None. TECHNIQUE: CT scan of the abdomen and pelvis performed using helical scanning technique with dynamic intravenous contrast injection. No oral contrast. Images reviewed with lung, soft tissue, and bone windows. Reconstructed coronal and sagittal MPR images reviewed. Delayed images for evaluation of the urinary system also acquired. All images stored on PACS. All CT scanners at this facility use dose modulation, iterative reconstruction, and/or weight based d osing when appropriate to reduce radiation dose to as low as reasonably achievable (ALARA). [facility]: Dose Right [facility]: CareDose [facility]: Dose Right [facility]: Teradose 4D [facility]: Asteel CONTRAST TYPE AND DOSE: contrast/concentration: Isovue 350.00 mg/ml; Total Contrast Delivered: 93.0 ml; Total Saline Delivered: 45.0 ml RENAL FUNCTION: BUN 10 creatinine 0.55 RADIATION DOSE: CT Rad equipment meets quality standard of care and radiation dose reduction techniq ues were employed. CTDIvol: 17.4 - 20.4 mGy. DLP: 2083 mGy-cm.. LIMITATIONS: None. FINDINGS: LOWER CHEST: No significant findings. No nodules or infiltrates. LIVER: Normal size. No masses. No dilated ducts. SPLEEN: Normal size. No focal lesions. PANCREAS: No masses. No significant calcifications. No adjacent inflammation or peripancreatic fluid collections. Pancreatic duct not dilated. GALLBLADDER: Surgically absent. ADRENAL GLANDS: No significant masses or asymmetry. RIGHT KIDNEY AND URETER: No solid masses. No significant calcifications. No hydronephrosis or hyd roureter. LEFT KIDNEY AND URETER: No solid masses. No significant calcifications. No hydronephrosis or hydr oureter. AORTA AND VESSELS: No aneurysm. No dissection. Renal arteries, SMA, celiac without stenosis. RETROPERITONEUM: No retroperitoneal adenopathy, hemorrhage or masses. BOWEL AND PERITONEAL CAVITY: Small bowel is dilated to the proximal jejunum just distal to the suture line. No bowel masses. APPENDIX: Not identified. PELVIS: No mass. No free fluid. Normal bladder. ABDOMINAL WALL: No masses. No hernias. BONES: No significant or acute findings. OTHER: No other significant finding. IMPRESSION: Proximal partial small bowel obstruction. TECHNICAL DOCUMENTATION: JOB ID: [id number] Quality ID # [id number]: Final reports with documentation of one or more dose reduction techniques (e.g., Au tomated exposure control, adjustment of the mA and/or kV according to patient size, use of iterative reconstruction technique) 2010 [employer]- All Rights Reserved Reading location - IP/workstation name: [email or web address]
--- NOTE | 2018-01-16 21:10 | RADIOLOGY REPORT (SQ) ---
EXAM DESCRIPTION: CHEST SINGLE VIEW COMPLETED DATE/TIME: 01/16/2018 8:48 pm REASON FOR STUDY: cough COMPARISON: None. EXAM PARAMETERS: NUMBER OF VIEWS: One view. TECHNIQUE: Single frontal radiographic view of the chest acquired. RADIATION DOSE: NA LIMITATIONS: None. FINDINGS: LUNGS AND PLEURA: No opacities, masses or pneumothorax. No pleural effusion. MEDIASTINUM AND HILAR STRUCTURES: No masses. Contour normal. HEART AND VASCULAR STRUCTURES: Heart normal in size. Normal vasculature. BONES: No acute findings. HARDWARE: None in the chest. OTHER: No other significant finding. IMPRESSION: NO ACUTE RADIOGRAPHIC FINDING IN THE CHEST. TECHNICAL DOCUMENTATION: JOB ID: [id number] [email or web address]- All Rights Reserved Reading location - IP/workstation name: [email or web address]
[2018-01-16 22:09] LABS: CREATINE KINASE MB 0.53 ng/mL (<4.55)
[2018-01-16 22:14] LABS: NT PRO BNP 223 pg/mL (5-900)
[2018-01-16 22:15] LABS: TROPONIN I < 0.012 ng/mL
[2018-01-17] MEDS ORDERED: FENTANYL CITRATE INJ/PF 100 MCG/2 ML AMPUL IV ONE (00:13)
[2018-01-17] MEDS ORDERED: ONDANSETRON HCL INJ/PF 4 MG/2 ML SDV IV PRN (00:48)
[2018-01-17] MEDS ORDERED: MORPHINE SULFATE 10 MG/ML INJ IV PRN (00:48)
[2018-01-17] MEDS: MORPHINE SULFATE 10 MG/ML INJ IV PRN ×2 (03:41→09:03)
[2018-01-17] MEDS: DEXTROSE 5%-LACTATED RINGERS 1,000 ML IV PRN ×3 (03:42→22:54)
--- NOTE | 2018-01-17 06:51 | PDOC H&P ---
History of Present Illness Admission Date/PCP: 01/17/18 01:19 SURGICAL SURGICALIST Patient complains of: Nausea, vomiting, abdominal pain History of Present Illness: CHEO GARCIA is a 52 year old female who is many years status post gastric bypass surgery. The patient reports that she has had a previous episode of obstruction, requiring revision surgery. Patient presents with a 2-day history of nausea, vomiting, and abdominal pain. Her pain is crampy in nature is relieved with vomiting. At worst her pain is 8 out of 10. She is more comfortable after pain and nausea medication. Her pain is situated in the epigastrium. Her pain does not radiate anywhere. Palpation makes her pain worse. Patient denies chest pain, shortness of breath, dizziness, orthostasis, palpitations, blurry vision, fatigue, paresthesias. She does report nausea, vomiting, abdominal pain, abdominal distention, malaise. Past Medical History Past Medical History: Morbid obesity status post gastric bypass Cardiac Medical History: Reports: Hypertension Denies: Coronary Artery Disease, Myocardial Infarction Pulmonary Medical History: Denies: Asthma, Bronchitis, Chronic Obstructive Pulmonary Disease (COPD), Pneumonia Neurological Medical History: Denies: Seizures GI Medical History: Reports: Diverticulitis, Gastroesophageal Reflux Disease Musculoskeltal Medical History: Denies: Arthritis Psychiatric Medical History: Reports: Depression Hematology: Denies: Anemia Past Surgical History Past Surgical History: Reports: Appendectomy, Cholecystectomy, Gastric Bypass Surgery, Tubal Ligation, Other - Revision of gastric bypass due to small bowel obstruction. Denies: Hysterectomy Social History Smoking Status: Never Smoker Frequency of Alcohol Use: None Hx Recreational Drug Use: No Drugs: None Hx Prescription Drug Abuse: No - Advance Directive Resuscitation Status: Full Code Family History Family History: Reviewed & Not Pertinent Parental Family History Reviewed: Yes Children Family History Reviewed: Yes Sibling(s) Family History Reviewed.: Yes Medication/Allergy Home Medications: Alprazolam 0.25 mg PO PRN PRN 02/25/16 Omeprazole 20 mg PO DAILY 02/25/16 Sertraline HCl 100 mg PO DAILY 02/25/16 Docusate Sodium [Colace 100 mg Capsule] 100 mg PO BID 08/18/16 Ergocalciferol (Vitamin D2) [Vitamin D2] 50,000 unit PO ASDIR PRN 08/18/16 Losartan/Hydrochlorothiazide [Hyzaar 50-12.5 Tablet] 1 each PO DAILY 08/18/16 Oxycodone HCl 5 mg PO PRN PRN 08/18/16 Dicyclomine HCl [Bentyl 20 mg Tablet] 20 mg PO QID PRN #15 tablet 09/05/17 Promethazine HCl [Phenergan 25 mg Tablet] 1 - 2 tab PO Q6H PRN #15 tablet Allergies/Adverse Reactions: Penicillins Allergy (Severe, Verified 01/17/18 02:29) Anaphylaxis morphine Allergy (Intermediate, Verified 01/17/18 02:29) Generalized rash Review of Systems Constitutional: ABSENT: chills, fatigue, fever(s) Eyes: ABSENT: visual disturbances Ears: ABSENT: hearing changes Nose, Mouth, and Throat: ABSENT: sore throat Cardiovascular: ABSENT: chest pain, dyspnea on exertion Respiratory: ABSENT: cough, dyspnea Gastrointestinal: PRESENT: abdominal pain, bloating, nausea, vomiting. ABSENT: hematemesis, hematochezia Genitourinary: ABSENT: dysuria Musculoskeletal: ABSENT: back pain Integumentary: ABSENT: pruritus, rash Neurological: ABSENT: abnormal speech, confusion, convulsions, dizziness Psychiatric: ABSENT: anxiety, depression Endocrine: ABSENT: cold intolerance, heat intolerance Hematologic/Lymphatic: ABSENT: easy bleeding, easy bruising Physical Exam Vital Signs: Temp Pulse Resp BP Pulse Ox 98.9 F 98 18 144/78 H 99 01/17/18 02:55 01/17/18 02:55 01/17/18 02:55 01/17/18 02:55 01/17/18 02:55 Intake & Output 01/15/18 01/16/18 01/17/18 06:59 06:59 06:59 Intake Total 0 Balance 0 Weight 89 kg General appearance: PRESENT: no acute distress Head exam: PRESENT: atraumatic, normocephalic Eye exam: PRESENT: EOMI, PERRLA. ABSENT: scleral icterus Mouth exam: PRESENT: moist, neck supple Neck exam: ABSENT: meningismus, tenderness, thyromegaly, tracheal deviation Respiratory exam: PRESENT: clear to auscultation cecy, unlabored. ABSENT: chest wall tenderness, rhonchi, tachypnea, wheezes Cardiovascular exam: PRESENT: RRR Pulses: PRESENT: normal radial pulses GI/Abdominal exam: PRESENT: distended - Mild, soft, tenderness - Mild epigastric. ABSENT: firm, rigid Rectal exam: PRESENT: deferred Extremities exam: ABSENT: clubbing Musculoskeletal exam: ABSENT: deformity Neurological exam: PRESENT: alert, awake, oriented to person, oriented to place , oriented to time, oriented to situation, CN II-XII grossly intact Psychiatric exam: ABSENT: agitated, anxious, depressed Focused psych exam: ABSENT: delusional Skin exam: ABSENT: cyanosis, erythema, jaundice Results Impressions: Abdomen/Pelvis CT 01/16/18 18:18 IMPRESSION: Proximal partial small bowel obstruction. Chest X-Ray 01/16/18 20:36 IMPRESSION: NO ACUTE RADIOGRAPHIC FINDING IN THE CHEST. Assessment & Plan - Diagnosis (1) Complications of gastric bypass surgery Is this a current diagnosis for this admission?: Yes - Plan Summary Plan Summary: There is a 52-year-old female with nausea, vomiting, and abdominal pain. She is many years status post gastric bypass. She has had revision of her gastric bypass one time before for a small bowel obstruction. Patient underwent CT scanning in the emergency department and was found to have all bowel obstruction , likely at the level of her jejunojejunal anastomosis. I recommended transfer to her bariatric surgeon in [place], Dr. Gallegos. The patient has been accepted by [place], however we are awaiting a bed. I will admit her to the floor for IV fluids and pain medications while we are awaiting transfer. The patient is in agreement with the treatment plan
--- NOTE | 2018-01-17 07:35 | EKG REPORT ---
SEVERITY:- OTHERWISE NORMAL ECG - SINUS RHYTHM BORDERLINE LEFT AXIS DEVIATION : Confirmed by: Yang Vilchis MD 17-Jan-2018 07:34:43
--- NOTE | 2018-01-17 11:36 | PDOC PROGRESS REPORT ---
Subjective Progress Note for:: 01/17/18 Subjective:: Pain is less. Patient has had no further nausea or vomiting. She is not passing gas nor having bowel movements however. Patient still feels bloated. Reason For Visit: SBO S/P GASTRIC BYPASS Physical Exam Vital Signs: Temp Pulse Resp BP Pulse Ox 98.3 F 84 18 106/47 L 95 01/17/18 08:17 01/17/18 08:17 01/17/18 08:17 01/17/18 08:17 01/17/18 08:17 Intake & Output 01/16/18 01/17/18 01/18/18 06:59 06:59 06:59 Intake Total 0 Balance 0 Weight 89 kg General appearance: PRESENT: no acute distress, cooperative Respiratory exam: PRESENT: clear to auscultation cecy Cardiovascular exam: PRESENT: RRR GI/Abdominal exam: PRESENT: other - Soft, mildly distended, mild epigastric tenderness without peritoneal signs. Results Impressions: Abdomen/Pelvis CT 01/16/18 18:18 IMPRESSION: Proximal partial small bowel obstruction. Chest X-Ray 01/16/18 20:36 IMPRESSION: NO ACUTE RADIOGRAPHIC FINDING IN THE CHEST. Assessment & Plan - Diagnosis (1) Partial small bowel obstruction Is this a current diagnosis for this admission?: Yes Plan: Patient does look better than admission with decreased pain and no intractable vomiting. Pending transfer to [facility] for care with her bariatric surgeon.
[2018-01-17] MEDS: HYDROMORPHONE HCL INJ/PF 2 MG/ML AMPULE IV PRN ×3 (13:40→22:45)
[2018-01-17] MEDS: ONDANSETRON HCL INJ/PF 4 MG/2 ML SDV IV PRN ×2 (17:27→22:46)
[2018-01-18] MEDS: HYDROMORPHONE HCL INJ/PF 2 MG/ML AMPULE IV PRN ×3 (02:59→11:36)
[2018-01-18] MEDS: ONDANSETRON HCL INJ/PF 4 MG/2 ML SDV IV PRN ×2 (03:03→07:01)
[2018-01-18 04:54] LABS: ABSOLUTE EOSINOPHILS # (AUTO) 0.1 10^3/uL (0.0-0.6); ABSOLUTE MONOCYTES (AUTO) 0.2 10^3/uL (0.1-1.4); ABSOLUTE NEUT (AUTO) 2.3 10^3/uL (1.7-8.2); BASOPHILS % (AUTO) 0.8 % (0-2); EOSINOPHILS % (AUTO) 1.5 % (0-6); MEAN CORPUSCULAR HEMOGLOBIN 30.4 pg (27.0-33.4); MEAN CORPUSCULAR HGB CONC 34.4 g/dL (32.0-36.0); MEAN CORPUSCULAR VOLUME 89 fl (80-97); PLATELET COUNT 152 10^3/uL (150-450); RED BLOOD COUNT 4.07 10^6/uL (3.72-5.28); RED CELL DISTRIBUTION WIDTH 14.4 % (11.5-14.0); SEGMENTED NEUTROPHILS % (AUTO) 64.7 % (42-78); TOTAL CELLS COUNTED % (AUTO) 100 %; WHITE BLOOD COUNT 3.6 10^3/uL (4.0-10.5)
[2018-01-18 04:55] LABS: HEMOGLOBIN 12.4 g/dL (12.0-15.5)
[2018-01-18 05:14] LABS: ALANINE AMINOTRANSFERASE 178 U/L (9-52); ALKALINE PHOSPHATASE 122 U/L (38-126); ANION GAP 6 (5-19); ASPARTATE AMINO TRANSFERASE 231 U/L (14-36); BILIRUBIN,DIRECT 0.2 mg/dL (0.0-0.4); BILIRUBIN,TOTAL 0.9 mg/dL (0.2-1.3); BLOOD UREA NITROGEN 8 mg/dL (7-20); CALCIUM 8.3 mg/dL (8.4-10.2); CARBON DIOXIDE 27 mmol/L (22-30); CHLORIDE 108 mmol/L (98-107); GLUCOSE 139 mg/dL (75-110); POTASSIUM 3.7 mmol/L (3.6-5.0); TOTAL PROTEIN 5.5 g/dL (6.3-8.2)
[2018-01-18] MEDS: DEXTROSE 5%-LACTATED RINGERS 1,000 ML IV PRN ×2 (08:58→19:07)
--- NOTE | 2018-01-18 10:40 | RADIOLOGY REPORT (SQ) ---
EXAM DESCRIPTION: ABDOMEN 2 VIEWS COMPLETED DATE/TIME: 01/18/2018 10:28 am REASON FOR STUDY: f/u psbo COMPARISON: CT dated 01/16/2018. Abdominal series dated 09/06/2017. NUMBER OF VIEWS: Two views. TECHNIQUE: Supine and erect/decubitus radiographic images of the abdomen acquired. LIMITATIONS: None. FINDINGS: FREE AIR: None. No abnormal gas collections. LUNG BASES: Clear. BOWEL GAS PATTERN: Nonobstructive pattern. No dilated loops. A few nonspecific air-fluid levels. CALCIFICATIONS: No suspicious calcifications. SOFT TISSUES: No gross mass or suggestion of organomegaly. HARDWARE: Multiple surgical clips. BONES: No acute fracture. No worrisome bone lesions. OTHER: No other significant finding. IMPRESSION: NO RADIOGRAPHIC EVIDENCE FOR ACUTE ABDOMINAL DISEASE. TECHNICAL DOCUMENTATION: JOB ID: [id number] [employer]- All Rights Reserved Reading location - IP/workstation name: [email or web address]
--- NOTE | 2018-01-18 15:45 | PDOC PROGRESS REPORT ---
Subjective Progress Note for:: 01/18/18 Subjective:: comfortable, flatus present, no nausea, no vomiting Reason For Visit: SBO S/P GASTRIC BYPASS Physical Exam Vital Signs: Temp Pulse Resp BP Pulse Ox 98.1 F 55 L 16 118/63 97 01/18/18 11:31 01/18/18 11:31 01/18/18 11:31 01/18/18 11:31 01/18/18 11:31 Intake & Output 01/17/18 01/18/18 01/19/18 06:59 06:59 06:59 Intake Total 0 1920 1000 Balance 0 1920 1000 Weight 89 kg 90.8 kg General appearance: PRESENT: no acute distress GI/Abdominal exam: PRESENT: normal bowel sounds, soft Results Laboratory Results: 01/18/18 03:52 01/18/18 03:52 01/18/18 01/18/18 03:52 03:52 WBC 3.6 L RBC 4.07 Hgb 12.4 D Hct 36.0 MCV 89 MCH 30.4 MCHC 34.4 RDW 14.4 H Plt Count 152 Seg Neutrophils % 64.7 Lymphocytes % 27.0 Monocytes % 6.0 Eosinophils % 1.5 Basophils % 0.8 Absolute Neutrophils 2.3 Absolute Lymphocytes 1.0 Absolute Monocytes 0.2 Absolute Eosinophils 0.1 Absolute Basophils 0.0 Sodium 141.0 Potassium 3.7 Chloride 108 H Carbon Dioxide 27 Anion Gap 6 BUN 8 Creatinine 0.55 Est GFR ( Amer) > 60 Est GFR (Non-Af Amer) > 60 Glucose 139 H Calcium 8.3 L Total Bilirubin 0.9 AST 231 H ALT 178 H Alkaline Phosphatase 122 Total Protein 5.5 L Albumin 3.0 L Impressions: Abdomen/Pelvis CT 01/16/18 18:18 IMPRESSION: Proximal partial small bowel obstruction. Chest X-Ray 01/16/18 20:36 IMPRESSION: NO ACUTE RADIOGRAPHIC FINDING IN THE CHEST. Abdomen X-Ray 01/18/18 07:00 IMPRESSION: NO RADIOGRAPHIC EVIDENCE FOR ACUTE ABDOMINAL DISEASE. Assessment & Plan - Diagnosis (1) Partial small bowel obstruction Is this a current diagnosis for this admission?: Yes - Plan Summary Plan Summary: A/ Flatus present, no nausea, no vomiting Partial mechanical SBO resolved as per abdominal Xray today Stricture at anastomosis B/ Advance to sips of water Full liquid diet Heplock IVF hold transfer at this point. discharge tomorrow if diet is tolerated Miralax 1 cup daily
[2018-01-18] MEDS ORDERED: ACETAMINOPHEN SOLN 325 MG/10.15 ML UDCUP PO PRN (18:21)
[2018-01-18] MEDS ORDERED: ACETAMINOPHEN SOLN 325 MG/10.15 ML UDCUP ONE (18:24)
[2018-01-18 20:18] VITALS: BP 144/78
[2018-01-19] MEDS ORDERED: POLYETHYLENE GLYCOL 3350 POWDER 17 GM/1 PACKET PO SCH (10:00)
--- NOTE | 2018-01-19 13:37 | DISCHARGE SUMMARY E ---
Discharge Summary NAME: CHEO GARCIA : 1965 AGE: 52Y ADMITTED: 01/17/2018 DISCHARGED: 01/18/2018 FINAL DIAGNOSES: 1. PARTIAL MECHANICAL SMALL BOWEL OBSTRUCTION. 2. STATUS POST YVETTE-EN-Y GASTRIC BYPASS. COMPLICATIONS: None. HOSPITAL COURSE: A 52-year-old female with a BMI of 36 who underwent a Yvette-en-Y gastric bypass in 2006. She reports a history of on and off abdominal symptoms consisting mainly of abdominal pain,feeling of constipation for the past year. Patient presented to the emergency room with above symptoms. A CT scan of the abdomen and pelvis was done revealing a partial mechanical small bowel obstruction with narrowing at one of the bowel anastomoses. The patient was admitted, kept on p.r.n. IV fluids and transfer to [facility] was arranged. This could not be executed. Therefore, the patient was kept n.p.o. overnight on IV fluids. On hospital day #2, the patient presented with flatus, soft abdomen. A repeated x-ray of the abdomen revealed a resolved partial mechanical small bowel obstruction with nonspecific gas pattern of the bowel on x-ray. On physical exam, the abdomen was soft. She presented with flatus. Her diet was then advanced to liquids first and then fully with diet. DISCHARGE ORDERS: The patient was discharged home on January 18, 2018. She was given followup appointment with Surgical Clinic with the Kimberli RAMIREZ in 2 weeks. She was instructed to remain fully with diet and to slowly advance her regular diet. Avoid vegetable fibers lifetime. Remain on a semi-liquid diet and reintroduce regular diet afterward with exception of fiber. She was given MiraLax 1 capsule p.o. daily mixed with juice to prevent constipation. Activity as tolerated. DICTATING PHYSICIAN: CAMILA STALLINGS M.D. [id number] PHY#: [id number] ID: [id number] JOB#: [id number] ACCT: [id number] cc:CAMILA STALLINGS M.D. [facility] Corporation[facility], [facility]
== END 2018-01-18 20:42 | disposition home or self-care (01) ==
LOC: ER 17:33 → EH 01-17 01:19 → 3N 01-17 02:55
PROVIDERS: ATTEND Surgery
DX: K56.600 Partial intestinal obstruction, unspecified as to cause (principal); Z98.84 Bariatric surgery status; I10 Essential (primary) hypertension; K21.9 Gastro-esophageal reflux disease without esophagitis; Z90.49 Acquired absence of other specified parts of digestive tract; Z98.51 Tubal ligation status; Z79.899 Other long term (current) drug therapy; Z87.891 Personal history of nicotine dependence; Z87.19 Personal history of other diseases of the digestive system; Z23 Encounter for immunization
CPT/HCPCS: 93005; 96376; 99285; 96361; 96374; 96375; 36415 ×2; 82553; 82962 ×2; 82550; 83690; 85025 ×2; 80053 ×2; 81001; 84484; 83605; 83880; 74019; 71045; 74177; 90686; 93010; J3010 ×2; J2270; J1170 ×3; J2405 ×3; J7030; J3490

== ENCOUNTER → 2018-01-30 | Outpatient (CLI) | payer MEDICARE ==
--- NOTE | 2018-01-30 12:15 | WOMENS IMAGING REPORT ---
EXAM DESCRIPTION: BILAT SCREENING MAMMO W/CAD COMPLETED DATE/TIME: 01/30/2018 11:39 am REASON FOR STUDY: SCREENING MAMMO Z12.31 ENCNTR SCREEN MAMMOGRAM FOR MALIGNANT NEOPLASM OF OSCAR COMPARISON: 01/31/2017. TECHNIQUE: Standard craniocaudal and mediolateral oblique views of each breast recorded using Addowaya l acquisition. LIMITATIONS: None. FINDINGS: Findings present which are benign by mammographic criteria. No suspicious masses, calcifi cations or architectural distortion. Pertinent benign findings: Stable left breast nodule with adjacent biopsy clip. Stable calcification s. Read with the assistance of CAD. .[facility] - R2 Cenova Version 1.3 .[facility] - R2 Cenova Version 1.3 .[facility] - R2 Cenova Version 2.4 .[facility] - R2 Cenova Version 2.4 .[facility] - R2 Hourly Manager Version 9.2 Benign mammographic findings may include one or more of the following: Smooth masses, popcorn/rim/co arse calcifications, asymmetries, post-procedure changes, and lesions with long-standing stability. IMPRESSION: BENIGN MAMMOGRAPHIC FINDINGS. BIRADS 2 BREAST DENSITY: b. There are scattered areas of fibroglandular density. BIRAD: 2 BENIGN FINDING(S) RECOMMENDATION: ROUTINE SCREENING COMMENT: The patient has been notified of the results by letter per SA requirements. Additional no tification policies are in place for contacting patient with suspicious or incomplete findings. Quality ID #225: The [employer] recommends an annual screening mammogram for women aged 40 years or over. This facility utilizes a reminder system to ensure that all patients receive reminder letters, and/or direct phone calls for appointments. This includes reminders for routine scr eening mammograms, diagnostic mammograms, or other Breast Imaging Interventions when appropriate. Th is patient will be placed in the appropriate reminder system. The [employer] (ACR) has developed recommendations for screening MRI of the breast s in certain patient populations, to be used in conjunction with mammography. Breast MRI surveillanc e may be appropriate for women with more than 20% lifetime risk of developing breast cancer as deter mined by genetic testing, significant family history of the disease, or history of mantle radiation f or Hodgkins Disease. ACR Practice Guidelines 2008. TECHNICAL DOCUMENTATION: FINDING NUMBER: (1) ASSESSMENT: (1) JOB ID: [id number] [employer]- All Rights Reserved Reading location - IP/workstation name: [email or web address]
== END ==
LOC: WI 11:18
PROVIDERS: ATTEND Family Medicine
DX: Z12.31 Encounter for screening mammogram for malignant neoplasm of breast (principal)
CPT/HCPCS: 77067

== ENCOUNTER 2018-07-22 15:35 | Emergency (ER) | payer MEDICARE ==
--- NOTE | 2018-07-22 16:29 | ER Document Report ---
ED Respiratory Problem - General Chief Complaint: Nonproductive Cough Stated Complaint: COUGH Time Seen by Provider: 07/22/18 16:21 Primary Care Provider: DOMINGO HAN DO [Primary Care Provider] - Follow up as needed Mode of Arrival: Ambulatory Information source: Patient, Relative - Family member helping facilitate communication with interpreting TRAVEL OUTSIDE OF THE U.S. IN LAST 30 DAYS: No - HPI Patient complains to provider of: Cough Notes: Patient here with complaints of cough. The patient states that she had a cough for about a week now. She was seen at an outside facility 3 days ago was given Tessalon Perles and antihistamines. Since she started taking the antihistamines, she states that her throat has gotten really dry. She also states that when she took the Tessalon Perles yesterday she felt like her hands were tingling. This resolved on its own and she has not had any since that time but she has not taken any further Tessalon Perles. She denies any fever. No difficulty breathing or swallowing. No chest pain. No shortness of breath. No nausea, vomiting, diarrhea. No abdominal pain. No rash. Biggest complaint now is that her mouth feels dry that she still has a cough. No other complaints at this time. - Related Data Allergies/Adverse Reactions: Penicillins Allergy (Severe, Verified 07/22/18 15:36) Anaphylaxis morphine Allergy (Intermediate, Verified 07/22/18 15:36) Generalized rash Past Medical History - Social History Smoking Status: Unknown if Ever Smoked Chew tobacco use (# tins/day): No Frequency of alcohol use: None Drug Abuse: None Family History: Reviewed & Not Pertinent Patient has suicidal ideation: No Patient has homicidal ideation: No - Past Medical History Cardiac Medical History: Reports: Hx Hypertension Denies: Hx Coronary Artery Disease, Hx Heart Attack Pulmonary Medical History: Denies: Hx Asthma, Hx Bronchitis, Hx COPD, Hx Pneumonia Neurological Medical History: Denies: Hx Cerebrovascular Accident, Hx Seizures Renal/ Medical History: Denies: Hx Peritoneal Dialysis GI Medical History: Reports: Hx Diverticulitis, Hx Gastroesophageal Reflux Disease, Hx Irritable Bowel Musculoskeletal Medical History: Denies Hx Arthritis Psychiatric Medical History: Reports: Hx Anxiety, Hx Depression Past Surgical History: Reports: Hx Abdominal Surgery, Hx Appendectomy, Hx Cholecystectomy, Hx Gastric Bypass Surgery, Hx Tubal Ligation, Other - Revision of gastric bypass due to small bowel obstruction.. Denies: Hx Hysterectomy - Immunizations Hx Diphtheria, Pertussis, Tetanus Vaccination: No Review of Systems - Review of Systems -: Yes All other systems reviewed and negative Physical Exam - Vital signs Vitals: Temp Pulse Resp BP Pulse Ox 98.1 F 85 14 129/68 H 100 07/22/18 15:41 07/22/18 15:41 07/22/18 15:41 07/22/18 15:41 07/22/18 15:41 - Notes Notes: GENERAL: alert, cooperative, nontoxic, no distress. HEAD: normocephalic, atraumatic EYES: conjunctiva pink without discharge, no external redness or swelling. EARS: no external swelling, no external redness, no mastoid redness, swelling, tenderness. Ear canals are clear without swelling or drainage. TMs pearly figueroa, no redness, no bulging, normal landmarks, no perforation. NOSE: atraumatic, no external swelling. clear rhinorrhea noted. MOUTH/THROAT: mucous membranes moist and pink, posterior pharynx without erythema, swelling, exudate. No trismus or drooling. NECK: soft, supple, full range of motion, no meningismus. CHEST: no distress, lungs clear and equal throughout. No wheezing, rales, rhonchi. CARDIAC: regular rate and rhythm, no murmur, normal capillary refill, normal pulses. No peripheral edema noted. BACK: full range of motion, no CVA tenderness. EXTREMITIES: full range of motion of all extremities. No redness, no swelling. NEURO: alert and oriented A&O3, no focal deficits, full range of motion of all extremities. PYSCH: appropriate mood, affect. Patient is cooperative. SKIN: pink, warm, dry, no rash. Course - Re-evaluation Re-evalutation: 07/22/18 17:45 Patient nontoxic-appearing stable vitals. Patient here with complaints of cough for about a week now. She was seen on Sunday was placed on antihistamines and she states now her mouth is very dry. She is given Tessalon Perles. She states that she took 1 dose of those and it caused her hands to get tingly. She has not taken any since that time. She denies any numbness or tingling now. She has a nonfocal exam. Lungs are clear. She is not hypoxic, tachypneic or febrile. Chest x-ray is negative. I instructed her to stop taking the antihistamines if she feels like this is causing her mouth to get to dry. Stop taking the Tessalon Perles. She will be discharged home with prescription for Hycodan that she can take for cough as needed. Follow-up with her doctor if not better in the next 3 to 5 days, sooner for worsening symptoms, high fever, difficulty breathing, persistent vomiting, or for any further concerns. Patient has no signs of congestive heart failure, pneumothorax, pleural effusion, pneumonia or other serious cause of her cough. The patient's emergency department workup and current diagnosis were explained to the patient and or family. Follow-up instructions were provided. Medications if prescribed were discussed. Instructions for when to return to the emergency department including specific worrisome symptoms were discussed with the patient and/or family. - Vital Signs Vital signs: Temp Pulse Resp BP Pulse Ox 98.1 F 85 14 129/68 H 100 07/22/18 15:41 07/22/18 15:41 07/22/18 15:41 07/22/18 15:41 07/22/18 15:41 - Diagnostic Test Radiology reviewed: Image reviewed, Reports reviewed - Negative chest x-ray Discharge - Discharge Clinical Impression: URI (upper respiratory infection) Qualifiers: URI type: unspecified viral URI Qualified Code(s): J06.9 - Acute upper respiratory infection, unspecified Condition: Stable Disposition: HOME, SELF-CARE Instructions: Upper Respiratory Illness ([facility]) Additional Instructions: Take medications as prescribed. Stop taking the other medications were given at your last visit. Follow-up with your doctor at the next available appointment. Follow-up sooner for worsening symptoms, high fever, difficulty breathing, persistent vomiting, or for any further concerns. Prescriptions: Hydrocodone Bit/Homatropine [Hycodan Syrup 5-1.5 mg/5 ml Ud Cup] 5 ml PO Q4HP PRN #120 ml PRN Reason: Referrals: DOMINGO HAN DO [Primary Care Provider] - Follow up as needed
--- NOTE | 2018-07-22 16:45 | RADIOLOGY REPORT (SQ) ---
EXAM DESCRIPTION: CHEST 2 VIEWS COMPLETED DATE/TIME: 07/22/2018 4:37 pm REASON FOR STUDY: cough COMPARISON: 01/16/2018 EXAM PARAMETERS: NUMBER OF VIEWS: two views TECHNIQUE: Digital Frontal and Lateral radiographic views of the chest acquired. RADIATION DOSE: NA LIMITATIONS: none FINDINGS: LUNGS AND PLEURA: Low lung volumes. Stable slight scarring left lung base. No acute pul monary consolidation. No pneumothorax or pleural effusion. MEDIASTINUM AND HILAR STRUCTURES: No masses or contour abnormalities. HEART AND VASCULAR STRUCTURES: Heart normal size. No evidence for failure. BONES: No acute findings. HARDWARE: None in the chest. OTHER: No other significant finding. IMPRESSION: 1. Low lung volumes limits the evaluation. Stable slight left base scarring. No acute pulmonary consolidation. TECHNICAL DOCUMENTATION: JOB ID: [id number] [employer]- All Rights Reserved Reading location - IP/workstation name: [email or web address]
[2018-07-22 18:14] VITALS: BP 116/63
== END 2018-07-22 18:14 | disposition home or self-care (01) ==
LOC: ER 15:35
DX: J06.9 Acute upper respiratory infection, unspecified (principal); B97.89 Other viral agents as the cause of diseases classified elsewhere; R05 Cough; R68.2 Dry mouth, unspecified; I10 Essential (primary) hypertension; Z87.892 Personal history of anaphylaxis; Z88.0 Allergy status to penicillin; Z88.5 Allergy status to narcotic agent
CPT/HCPCS: 71046; 99283

== ENCOUNTER 2018-10-31 09:19 | Emergency (ER) | payer MEDICARE ==
--- NOTE | 2018-10-31 09:56 | ER Document Report ---
Addendum entered and electronically signed by MEENA BEY FNP 10/31/18 19:45: Course - Re-evaluation Re-evalutation: 10/31/18 19:44 I did evaluate the patient with transport at the bedside. Patient requesting another dose of pain medication as she reports her pain is a 7 out of 10. The patient tolerated the Dilaudid well, will order another dose. Patient is nontoxic-appearing with stable vital signs and stable for transfer. - Vital Signs Vital signs: Temp Pulse Resp BP Pulse Ox 98.0 F 81 18 120/95 H 94 10/31/18 18:00 10/31/18 09:26 10/31/18 10:50 10/31/18 18:00 10/31/18 18:01 - Laboratory Result Diagrams: 10/31/18 10:06 10/31/18 10:06 Laboratory results interpreted by me: 10/31/18 10/31/18 10/31/18 10:06 10:06 11:48 RDW 14.8 H Seg Neutrophils % 81.8 H Lymphocytes % 12.4 L Glucose 168 H Urine Glucose (UA) >=500 H Urine Ketones 20 H Original Note: ED General <MEENA BEY - Last Filed: 10/31/18 18:27> - General Mode of Arrival: Ambulatory Information source: Patient, Relative TRAVEL OUTSIDE OF THE U.S. IN LAST 30 DAYS: No <DENISE FIELDS - Last Filed: 10/31/18 19:36> - General Chief Complaint: Abdominal Pain Stated Complaint: ABDOMINAL PAIN Time Seen by Provider: 10/31/18 09:53 Primary Care Provider: DOMINGO HAN DO [Primary Care Provider] - Follow up as needed - HPI Notes: 52-year-old female presents to the ED for evaluation of abdominal pain, nausea and vomiting that became progressively worse yesterday. Patient has a past medical history of appendectomy, cholecystectomy, gastric bypass surgery with known adhesions and tubal ligation. Patient had gastric bypass surgery in 2012 in [place], has had surgery since then due to adhesions. Patient was seen in [place] 10/24/18 for similar issues, CT scan showed that she did have an intra-abdominal abscess around the abdominal wound from her previous surgery, was started on oral Bactrim. Patient is [place]ankan-speaking, Haley used . Denies fevers, chills, chest pain,palpitations, shortness of breath, dyspnea,diarrhea, , hematuria,blurred vision, double vision, loss of vision, speech changes, LH, dizziness, syncope, headaches, wheezing,, neck pain, weakness, bowel or bladder dysfunction, saddle anesthesia, numbness or tingling in bilateral upper or lower extremities equally, muscle paralysis, weakness in bilateral upper or lower extremities equally or rash. (DENISE FIELDS) - Related Data Allergies/Adverse Reactions: Penicillins Allergy (Severe, Verified 10/31/18 09:20) Anaphylaxis morphine Allergy (Intermediate, Verified 10/31/18 09:20) Generalized rash Past Medical History - General Information source: Patient, Relative - Social History Smoking Status: Unknown if Ever Smoked Family History: Reviewed & Not Pertinent - Past Medical History Cardiac Medical History: Reports: Hx Hypertension Denies: Hx Coronary Artery Disease, Hx Heart Attack Pulmonary Medical History: Denies: Hx Asthma, Hx Bronchitis, Hx COPD, Hx Pneumonia Neurological Medical History: Denies: Hx Cerebrovascular Accident, Hx Seizures Renal/ Medical History: Denies: Hx Peritoneal Dialysis GI Medical History: Reports: Hx Diverticulitis, Hx Gastroesophageal Reflux Disease, Hx Irritable Bowel Musculoskeletal Medical History: Denies Hx Arthritis Psychiatric Medical History: Reports: Hx Anxiety, Hx Depression Past Surgical History: Reports: Hx Abdominal Surgery, Hx Appendectomy, Hx Chol ecystectomy, Hx Gastric Bypass Surgery, Hx Tubal Ligation, Other - Revision of gastric bypass due to small bowel obstruction.. Denies: Hx Hysterectomy - Immunizations Hx Diphtheria, Pertussis, Tetanus Vaccination: No <DONNIEDENISE A - Last Filed: 10/31/18 19:36> Review of Systems - Review of Systems Constitutional: No symptoms reported EENT: No symptoms reported Cardiovascular: No symptoms reported Respiratory: No symptoms reported Gastrointestinal: See HPI Genitourinary: No symptoms reported Female Genitourinary: No symptoms reported Musculoskeletal: No symptoms reported Skin: No symptoms reported Hematologic/Lymphatic: No symptoms reported Neurological/Psychological: No symptoms reported <DENISE FIELDS - Last Filed: 10/31/18 19:36> Physical Exam - Vital signs Interpretation: Normal <DENISE FIELDS - Last Filed: 10/31/18 19:36> - Vital signs Vitals: Temp Pulse Resp BP Pulse Ox 97.8 F 81 18 128/91 H 98 10/31/18 09:26 10/31/18 09:26 10/31/18 09:26 10/31/18 09:26 10/31/18 09:26 - Notes Notes: PHYSICAL EXAMINATION: GENERAL: Well-appearing, well-nourished and in moderate distress HEAD: Atraumatic, normocephalic. EYES: Pupils equal round and reactive to light, extraocular movements intact, conjunctiva are normal. ENT: Nares patent, oropharynx clear without exudates. Moist mucous membranes. NECK: Normal range of motion, supple without lymphadenopathy LUNGS: Breath sounds clear to auscultation bilaterally and equal. No wheezes rales or rhonchi. HEART: Regular rate and rhythm without murmurs ABDOMEN: Right upper quadrant, left upper quadrant epigastric tenderness on palpation, periumbilical pain around abdominal keloid. no guarding, no rebound. No masses appreciated. No CVA tenderness appreciated bilaterally Female : deferred Musculoskeletal: Normal range of motion, no pitting or edema. No cyanosis. NEUROLOGICAL: Cranial nerves grossly intact. Normal speech, normal gait. Normal sensory, motor exams PSYCH: Normal mood, normal affect. SKIN: Warm, Dry, normal turgor, no rashes or lesions noted. (DENISE FIELDS) Course - Laboratory Result Diagrams: 10/31/18 10:06 10/31/18 10:06 - Diagnostic Test Radiology reviewed: Reports reviewed <MEENA BEY - Last Filed: 10/31/18 18:27> - Laboratory Result Diagrams: 10/31/18 10:06 10/31/18 10:06 <DENISE FIELDS - Last Filed: 10/31/18 19:36> - Re-evaluation Re-evalutation: 10/31/18 15:[address] scan showed a possible small bowel obstruction. I did contact our on-call surgical list Dr. Dior who will review the imaging and evaluate the patient in the emergency department. I did discuss these findings with the patient and family member. The son states that she does have a history of intestinal blockages with her last one being in January 2018 which did require surgery. He reports that the surgery was done at [facility] and by Dr. Alfredo Tabor. Patient is requesting additional pain medication as she states the med icine has worn off. Patient tolerated fentanyl well. I will order another dose. Patient has had no vomiting but reports nausea. 10/31/18 15:55 I did speak with Dr. Dior who is requesting oral contrast CT of the abdomen. I did speak with the patient and son who states she attempted to drink the oral contrast but was unable to do so due to nausea and vomiting. 16:00 Dr. Dior at bedside for patient evaluation. The patient and son state that if surgery is needed they do want the patient transferred to [facility] as her surgeon is located there. Per Dr. Dior, he recommends contacting [facility] for transfer. 10/31/18 16:10 Spoke with [facility] transfer center who will contact surgery regarding case. Will fax demographics and CT scan for them to review. 10/31/18 16:49 Patient complained of abdominal pain. Patient states that morphine does cause coughing and itching. Patient states she has tolerated Dilaudid in the past without allergic reaction. I will order patient a small dose of IV Dilaudid. I am waiting for [facility] to return phone call regarding transfer. 10/31/18 17:[address] Shaun Cloud who will accept transfer of the patient. I did make him aware that our surgeon was concerned that the patient has a afferent limb obstruction from today's CAT scan. He states that his group is familiar with the patient and that he will gladly accept as she was just seen in the emergency department last week and had a CAT scan. Will call [facility] for a change in patient status. 10/31/18 18:22 Patient does have a bed at [facility]. I did speak with Dr. Dior who was the one who saw today's CAT scan and did evaluate the patient and he states that at this time an NG tube is not recommended as this can cause a perforation and the patient ultimately needs surgery. At this time the patient is hemodynamically stable. Transport will be available after shift change for transfer around (MEENA BEY) 10/31/18 10:25 Afebrile vital stable no distress. Nurse's notes reviewed. CT abdomen and pelvis with p.o. and IV contrast ordered for concerns of intra-abdominal abscess per report of family members when she was at [place] approximately 5 days ago. Zofran given for antiemetic, morphine given for pain control. Brother is at bedside for translation as well as the use of Martti. 1230-On reevaluation, patient is somewhat tolerating p.o. contrast but has been vomiting somewhat, will give antiemetic IV.[id number] disposition given to Meena Bey [employer], bedside exam completed. CT abdomen pelvis with p.o. contrast is pending (DENISE FIELDS) - Vital Signs Vital signs: Temp Pulse Resp BP Pulse Ox 98.0 F 81 18 120/95 H 94 10/31/18 18:00 10/31/18 09:26 10/31/18 10:50 10/31/18 18:00 10/31/18 18:01 - Laboratory Laboratory results interpreted by me: 10/31/18 10/31/18 10/31/18 10:06 10:06 11:48 RDW 14.8 H Seg Neutrophils % 81.8 H Lymphocytes % 12.4 L Glucose 168 H Urine Glucose (UA) >=500 H Urine Ketones 20 H Discharge <MEENA BEY - Last Filed: 10/31/18 18:27> <DENISE FIELDS - Last Filed: 10/31/18 19:36> - Discharge Clinical Impression: Bowel obstruction Condition: Stable Disposition: [facility] Referrals: DOMINGO HAN DO [Primary Care Provider] - Follow up as needed
[2018-10-31] MEDS ORDERED: ONDANSETRON HCL INJ/PF 4 MG/2 ML SDV ONE (10:10)
[2018-10-31] MEDS ORDERED: METOCLOPRAMIDE HCL INJ/PF 10 MG/2 ML SDV IV ONE ×2 (10:22→13:27)
[2018-10-31] MEDS ORDERED: NORMAL SALINE 1000 ML 1,000 ML IV ONE (10:22)
[2018-10-31] MEDS ORDERED: FENTANYL CITRATE INJ/PF 100 MCG/2 ML AMPUL IV ONE ×3 (10:22→15:20)
[2018-10-31 10:34] LABS: ABSOLUTE LYMPHOCYTES (AUTO) 0.9 10^3/uL (0.5-4.7); ABSOLUTE MONOCYTES (AUTO) 0.4 10^3/uL (0.1-1.4); ABSOLUTE NEUT (AUTO) 6.1 10^3/uL (1.7-8.2); BASOPHILS % (AUTO) 0.5 % (0-2); EOSINOPHILS % (AUTO) 0.4 % (0-6); HEMATOCRIT 42.3 % (36.0-47.0); HEMOGLOBIN 14.6 g/dL (12.0-15.5); LYMPHOCYTES % (AUTO) 12.4 % (13-45); MEAN CORPUSCULAR HEMOGLOBIN 29.1 pg (27.0-33.4); MEAN CORPUSCULAR HGB CONC 34.5 g/dL (32.0-36.0); MEAN CORPUSCULAR VOLUME 84 fl (80-97); MONOCYTES % (AUTO) 4.9 % (3-13); PLATELET COUNT 255 10^3/uL (150-450); RED BLOOD COUNT 5.02 10^6/uL (3.72-5.28); RED CELL DISTRIBUTION WIDTH 14.8 % (11.5-14.0); SEGMENTED NEUTROPHILS % (AUTO) 81.8 % (42-78); TOTAL CELLS COUNTED % (AUTO) 100 %; WHITE BLOOD COUNT 7.4 10^3/uL (4.0-10.5)
[2018-10-31 11:01] LABS: ALANINE AMINOTRANSFERASE 20 U/L (9-52); ALBUMIN 4.9 g/dL (3.5-5.0); ALKALINE PHOSPHATASE 124 U/L (38-126); ANION GAP 13 (5-19); ASPARTATE AMINO TRANSFERASE 24 U/L (14-36); BILIRUBIN,DIRECT 0.3 mg/dL (0.0-0.4); BILIRUBIN,TOTAL 0.7 mg/dL (0.2-1.3); BLOOD UREA NITROGEN 12 mg/dL (7-20); C-REACTIVE PROTEIN < 5.0 mg/L (<10.0); CALCIUM 9.8 mg/dL (8.4-10.2); CARBON DIOXIDE 27 mmol/L (22-30); CHLORIDE 100 mmol/L (98-107); GLUCOSE 168 mg/dL (75-110); POTASSIUM 4.1 mmol/L (3.6-5.0); TOTAL PROTEIN 8.1 g/dL (6.3-8.2)
[2018-10-31 13:14] LABS: APPEARANCE,URINE CLEAR; BILIRUBIN,URINE NEGATIVE (NEGATIVE); COLOR,URINE YELLOW; GLUCOSE, URINE >=500 mg/dL (NEGATIVE); KETONES,URINE 20 mg/dL (NEGATIVE); LEUKOCYTE ESTERASE,URINE NEGATIVE (NEGATIVE); NITRITE,URINE NEGATIVE (NEGATIVE); PROTEIN,URINE NEGATIVE (NEGATIVE); URINE SPECIFIC GRAVITY 1.032; UROBILINOGEN,URINE NEGATIVE mg/dL (<2.0)
--- NOTE | 2018-10-31 14:26 | RADIOLOGY REPORT (SQ) ---
EXAM DESCRIPTION: CT ABD/PELVIS WITH IV ORAL COMPLETED DATE/TIME: 10/31/2018 2:10 pm REASON FOR STUDY: Intra-abdominal abscess from previous surgery COMPARISON: 09/05/2017 TECHNIQUE: CT scan of the abdomen and pelvis performed using helical scanning technique with dynamic intravenous contrast injection. No oral contrast. Images reviewed with lung, soft tissue, and bone windows. Reconstructed coronal and sagittal MPR images reviewed. Delayed images for evaluation of the urinary system also acquired. All images stored on PACS. All CT scanners at this facility use dose modulation, iterative reconstruction, and/or weight based d osing when appropriate to reduce radiation dose to as low as reasonably achievable (ALARA). [facility]: Dose Right [facility]: CareDose [facility]: Dose Right [facility]: Teradose 4D [facility]: GoCoop CONTRAST TYPE AND DOSE: contrast/concentration: Isovue 350.00 mg/ml; Total Contrast Delivered: 85.0 ml; Total Saline Delivered: 69.0 ml RENAL FUNCTION: BUN 12 creatinine 0.78 RADIATION DOSE: CT Rad equipment meets quality standard of care and radiation dose reduction techniq ues were employed. CTDIvol: 10.6 - 15.2 mGy. DLP: 1444 mGy-cm.. LIMITATIONS: None. FINDINGS: LOWER CHEST: No significant findings. No nodules or infiltrates. LIVER: Normal size. No masses. No dilated ducts. SPLEEN: Normal size. No focal lesions. PANCREAS: No masses. No significant calcifications. No adjacent inflammation or peripancreatic fluid collections. Pancreatic duct not dilated. GALLBLADDER: Surgically absent. ADRENAL GLANDS: No significant masses or asymmetry. RIGHT KIDNEY AND URETER: No solid masses. No significant calcifications. No hydronephrosis or hyd roureter. LEFT KIDNEY AND URETER: No solid masses. No significant calcifications. No hydronephrosis or hydr oureter. AORTA AND VESSELS: No aneurysm. No dissection. Renal arteries, SMA, celiac without stenosis. RETROPERITONEUM: No retroperitoneal adenopathy, hemorrhage or masses. BOWEL AND PERITONEAL CAVITY: There is distention of the stomach, duodenum, and proximal jejunum. The re is a transition in the jejunum with a suture line. There is focal distention of a loop of small b owel in the right side of the abdomen, likewise associated with a suture line. There is retained sto ol in the colon. No obvious bowel mass. APPENDIX: Surgically absent. PELVIS: No mass. No free fluid. Normal bladder. ABDOMINAL WALL: No masses. No hernias. BONES: No significant or acute findings. OTHER: No other significant finding. IMPRESSION: Partial small bowel obstruction with a transition point in the proximal jejunum. There is no intraperitoneal fluid collection to suggest an abscess. There is constipation. TECHNICAL DOCUMENTATION: JOB ID: [id number] Quality ID # [id number]: Final reports with documentation of one or more dose reduction techniques (e.g., Au tomated exposure control, adjustment of the mA and/or kV according to patient size, use of iterative reconstruction technique) 2010 [employer]- All Rights Reserved Reading location - IP/workstation name: [email or web address]
[2018-10-31] MEDS: NORMAL SALINE 1000 ML 1,000 ML IV PRN ×2 (14:54→16:22)
--- NOTE | 2018-10-31 16:15 | PDOC CONSULTATION ---
Consultation Consult Date: 10/31/18 Provider Consulted: ROSALVA MITCHELL Consult reason:: Abdominal pain History of Present Illness Admission Date/PCP: DOMINGO HAN DO Patient complains of: Abdominal pain History of Present Illness: CHEO GARCIA is a 52 year old female with history of gastric bypass done just over 10 years ago complicated by leak requiring remedial surgery as well as multiple episodes of bowel obstruction requiring multiple surgeries over the past several years including the most recent one in January of last year. Currently she is being seen for what sounds like stitch abscesses with her last surgery. Yesterday she began to have severe mid upper abdominal pain followed by nausea and vomiting. The pain persisted and she came in through the ER. She denies any fever. Denies any hematemesis. She apparently had been doing well up until yesterday. Past Medical History Cardiac Medical History: Reports: Hyperlipidema, Hypertension Denies: Coronary Artery Disease, Myocardial Infarction Pulmonary Medical History: Denies: Asthma, Bronchitis, Chronic Obstructive Pulmonary Disease (COPD), Pneumonia Neurological Medical History: Denies: Seizures GI Medical History: Reports: Diverticulitis, Gastroesophageal Reflux Disease Musculoskeltal Medical History: Denies: Arthritis Psychiatric Medical History: Reports: Depression Hematology: Denies: Anemia Past Surgical History Past Surgical History: Reports: Appendectomy, Cholecystectomy, Gastric Bypass Surgery, Tubal Ligation, Other - Revision of gastric bypass due to small bowel obstruction. Denies: Hysterectomy Social History Smoking Status: Unknown if Ever Smoked Frequency of Alcohol Use: None Hx Recreational Drug Use: No Drugs: None Hx Prescription Drug Abuse: No Family History Family History: Reviewed & Not Pertinent Parental Family History Reviewed: No Children Family History Reviewed: No Sibling(s) Family History Reviewed.: No Medication/Allergy Home Medications: Alprazolam 0.25 mg PO HSP PRN 02/25/16 Sertraline HCl 100 mg PO DAILY 02/25/16 Docusate Sodium [Colace 100 mg Capsule] 100 mg PO BID 08/18/16 Losartan/Hydrochlorothiazide [Hyzaar 50-12.5 Tablet] 1 each PO DAILY 08/18/16 Empagliflozin [Jardiance] 25 mg PO DAILY 01/17/18 Pantoprazole Sodium [Protonix] 40 mg PO DAILY 01/17/18 Pioglitazone HCl [Actos 15 mg Tablet] 1 tab PO DAILY 01/17/18 Rosuvastatin Calcium [Crestor 10 mg Tablet] 10 mg PO DAILY 01/17/18 Polyethylene Glycol 3350 [Miralax Powder 17 gm/Packet] 17 gm PO DAILY powd.pack 01/18/18 Hydrocodone Bit/Homatropine [Hycodan Syrup 5-1.5 mg/5 ml Ud Cup] 5 ml PO Q4HP PRN #120 ml 07/22/18 Allergies/Adverse Reactions: Penicillins Allergy (Severe, Verified 10/31/18 09:20) Anaphylaxis morphine Allergy (Intermediate, Verified 10/31/18 09:20) Generalized rash Physical Exam Vital Signs: Temp Pulse Resp BP Pulse Ox 97.8 F 81 18 116/53 L 96 10/31/18 09:26 10/31/18 09:26 10/31/18 10:50 10/31/18 12:01 10/31/18 12:01 Intake & Output 10/30/18 10/31/18 11/01/18 06:59 06:59 06:59 Intake Total 1000 Balance 1000 Weight 75.75 kg General appearance: PRESENT: cooperative, mild distress - Patient appears uncomfortable but does not appear toxic. Eye exam: PRESENT: conjunctiva pink Neck exam: PRESENT: other - No swelling nor tenderness nor abnormal masses Respiratory exam: PRESENT: clear to auscultation cecy Cardiovascular exam: PRESENT: RRR GI/Abdominal exam: PRESENT: other - Soft, mildly distended, mild tenderness in the right upper quadrant and epigastric region without peritoneal signs. Small draining wound at the midline along a fold. Extremities exam: PRESENT: other - No swelling and no tenderness Neurological exam: PRESENT: alert, awake Psychiatric exam: PRESENT: appropriate affect Skin exam: PRESENT: warm Results Laboratory Results: 10/31/18 10:06 10/31/18 10:06 10/31/18 10/31/18 10/31/18 10:06 10:06 11:48 WBC 7.4 RBC 5.02 Hgb 14.6 Hct 42.3 MCV 84 MCH 29.1 MCHC 34.5 RDW 14.8 H Plt Count 255 Seg Neutrophils % 81.8 H Lymphocytes % 12.4 L Monocytes % 4.9 Eosinophils % 0.4 Basophils % 0.5 Absolute Neutrophils 6.1 Absolute Lymphocytes 0.9 Absolute Monocytes 0.4 Absolute Eosinophils 0.0 Absolute Basophils 0.0 Sodium 139.8 Potassium 4.1 Chloride 100 Carbon Dioxide 27 Anion Gap 13 BUN 12 Creatinine 0.78 Est GFR ( Amer) > 60 Est GFR (Non-Af Amer) > 60 Glucose 168 H Lactic Acid Calcium 9.8 Total Bilirubin 0.7 AST 24 ALT 20 Alkaline Phosphatase 124 C-Reactive Protein < 5.0 Total Protein 8.1 Albumin 4.9 Lipase 126.7 Urine Color YELLOW Urine Appearance CLEAR Urine pH 6.0 Ur Specific [place] 1.032 Urine Protein NEGATIVE Urine Glucose (UA) >=500 H Urine Ketones 20 H Urine Blood NEGATIVE Urine Nitrite NEGATIVE Ur Leukocyte Esterase NEGATIVE Urine WBC (Auto) 1 Urine RBC (Auto) 1 10/31/18 13:37 WBC RBC Hgb Hct MCV MCH MCHC RDW Plt Count Seg Neutrophils % Lymphocytes % Monocytes % Eosinophils % Basophils % Absolute Neutrophils Absolute Lymphocytes Absolute Monocytes Absolute Eosinophils Absolute Basophils Sodium Potassium Chloride Carbon Dioxide Anion Gap BUN Creatinine Est GFR ( Amer) Est GFR (Non-Af Amer) Glucose Lactic Acid 1.0 Calcium Total Bilirubin AST ALT Alkaline Phosphatase C-Reactive Protein Total Protein Albumin Lipase Urine Color Urine Appearance Urine pH Ur Specific [place] Urine Protein Urine Glucose (UA) Urine Ketones Urine Blood Urine Nitrite Ur Leukocyte Esterase Urine WBC (Auto) Urine RBC (Auto) Impressions: Abdomen/Pelvis CT 10/31/18 10:21 IMPRESSION: Partial small bowel obstruction with a transition point in the proximal jejunum. There is no intraperitoneal fluid collection to suggest an abscess. There is constipation. Assessment & Plan - Diagnosis (1) Afferent limb obstruction Is this a current diagnosis for this admission?: Yes Plan: I have reviewed the CT scan with our radiologist and the findings are consistent with an afferent limb obstruction. I have recommended surgery to the patient but she wants to be transferred to [facility] where she had her last surgery. Reasonable request in light of her multiple laparotomies in the past. Emergency department will arrange transfer. Patient is stable for transfer.
[2018-10-31] MEDS ORDERED: HYDROMORPHONE HCL INJ/PF 2 MG/ML AMPULE IV ONE ×2 (16:49→19:43)
[2018-10-31 18:03] VITALS: BP 120/95
== END 2018-10-31 19:54 | disposition short-term general hospital (02) ==
LOC: ER 09:19
DX: K56.609 Unspecified intestinal obstruction, unspecified as to partial versus complete obstruction (principal); R10.9 Unspecified abdominal pain; R11.2 Nausea with vomiting, unspecified; Z90.49 Acquired absence of other specified parts of digestive tract; Z98.84 Bariatric surgery status; Z98.51 Tubal ligation status; Z88.0 Allergy status to penicillin; Z88.6 Allergy status to analgesic agent
CPT/HCPCS: 96376; 99285; 96361; 96374; 96375; 36415; 87040; 83690; 85025; 86140; 80053; 81001; 83605; 74177; J3010; J2765; J1170; J2405; J7030

== ENCOUNTER → 2019-02-19 | Outpatient (CLI) | payer MEDICARE ==
--- NOTE | 2019-02-19 14:43 | WOMENS IMAGING REPORT ---
EXAM DESCRIPTION: BILAT SCREENING MAMMO W/CAD COMPLETED DATE/TIME: 02/19/2019 10:41 am REASON FOR STUDY: Z12.31 ENCOUNTER FOR SCREENING MAMMOGRAM FOR MALIGNANT NEOPLASM OF BREAST Z12.39 ENCOUNTER FOR OTH SCREENING FOR MALIGNANT NEOPLASM OF Z12.31 ENCNTR SCREEN MAMMOGRAM FOR MALIGNANT N EOPLASM OF OSCAR COMPARISON: 2017, 2016 EXAM PARAMETERS: Standard craniocaudal and mediolateral oblique views of each breast recorded using digital acquisition. Read with the assistance of CAD. .[facility] - [employer] Chlorine Cell Tender Version 9.2 LIMITATIONS: None. FINDINGS: Findings present which are benign by mammographic criteria. No suspicious masses, calcifi cations or architectural distortion. Pertinent benign findings: Stable left breast calcifications. Old biopsy clip in a left breast intra mammary lymph node far upper outer quadrant. Benign mammographic findings may include one or more of the following: Smooth masses, popcorn/rim/co arse calcifications, asymmetries, post-procedure changes, and lesions with long-standing stability. IMPRESSION: BENIGN MAMMOGRAPHIC FINDINGS. BIRADS 2 BREAST DENSITY: a. The breasts are almost entirely fatty. BIRAD: ASSESSMENT: 2 BENIGN FINDING(S) RECOMMENDATION: ROUTINE SCREENING Please continue yearly bilateral screening mammography/tomosynthesis in February 2020 COMMENT: The patient has been notified of the results by letter per MQSA requirements. Additional no tification policies are in place for contacting patient with suspicious or incomplete findings. Quality ID #[id number]: The [employer] recommends an annual screening mammogram for women aged 40 years or over. This facility utilizes a reminder system to ensure that all patients receive reminder letters, and/or direct phone calls for appointments. This includes reminders for routine scr eening mammograms, diagnostic mammograms, or other Breast Imaging Interventions when appropriate. Th is patient will be placed in the appropriate reminder system. TECHNICAL DOCUMENTATION: FINDING NUMBER: (1) ASSESSMENT: (1) JOB ID: [id number] [employer]- All Rights Reserved Reading location - IP/workstation name: [email or web address]
== END ==
LOC: WI 09:38
PROVIDERS: ATTEND Nurse Practitioner Family
DX: Z12.31 Encounter for screening mammogram for malignant neoplasm of breast (principal)
CPT/HCPCS: 77067

== ENCOUNTER → 2019-02-20 | Outpatient (CLI) | payer MEDICARE ==
--- NOTE | 2019-02-20 09:19 | RADIOLOGY REPORT (SQ) ---
EXAM DESCRIPTION: CT ABD/PELVIS WITH IV ONLY COMPLETED DATE/TIME: 02/20/2019 8:11 am REASON FOR STUDY: DISRUPTION OF EXTERNAL OPERATION WOUND, NEC (T81.31XA) T81.31XA DISRUPTION OF EXT ERNAL OPERATION (SURGICAL) WOUND, COMPARISON: 02/25/2016, 09/05/2017, 01/16/2018, 10/31/2018 CT abdomen pelvis exams TECHNIQUE: CT scan of the abdomen and pelvis performed using helical scanning technique with dynamic intravenous contrast injection. No oral contrast. Images reviewed with lung, soft tissue, and bone windows. Reconstructed coronal and sagittal MPR images reviewed. Delayed images for evaluation of the urinary system also acquired. All images stored on PACS. All CT scanners at this facility use dose modulation, iterative reconstruction, and/or weight based d osing when appropriate to reduce radiation dose to as low as reasonably achievable (ALARA). [facility]: Dose Right [facility]: CareDose [facility]: Dose Right [facility]: Teradose 4D [facility]: BVfon Telecommunication CONTRAST TYPE AND DOSE: contrast/concentration: Isovue 350.00 mg/ml; Total Contrast Delivered: 85.0 ml; Total Saline Delivered: 69.0 ml RENAL FUNCTION: Creatinine 0.5 RADIATION DOSE: CT Rad equipment meets quality standard of care and radiation dose reduction techniq ues were employed. CTDIvol: 7.8 - 7.9 mGy. DLP: 849 mGy-cm.. LIMITATIONS: None. FINDINGS: The patient has had multiple abdominal surgeries including cholecystectomy, gastric bypass with Hernan loop, and percutaneous gastrostomy. The gastric bypass demonstrates a small hiatal hernia pouch. Small gastric bypass fundal pouch communicates with an abnormally thick walled efferrent loo p seen in the subxiphoid region on coronal images 18-23. There is a gastrostomy with the tip in the gastric body. Outlet of the rampart stomach is not well se en, no oral contrast was given for today's study. From the xiphoid to the umbilicus, there is an old healed midline anterior upper abdominal wall incis ion. Multiple small bowel loops appear tethered to the anterior abdominal wall within the peritoneal space on axial images 35-50, and sagittal reconstruction images 37-52. A discrete tract from bowel to the anterior abdominal wall surface is not identified on today's study. If there is clinical conc sophia for an enterocutaneous fistula, recommend repeating CT abdomen pelvis with both ingested oral con trast (drank by the patient), and contrast instilled into the gastrostomy tube. There is no CT evidence of bowel obstruction or free intraperitoneal air or fluid. Colon decompresse d. Normal appendix in the midline pelvis anteriorly. LOWER CHEST: No significant findings. No nodules or infiltrates. LIVER: Normal size. No masses. No dilated ducts. SPLEEN: Normal size. No focal lesions. PANCREAS: No masses. No significant calcifications. No adjacent inflammation or peripancreatic fluid collections. Pancreatic duct not dilated. GALLBLADDER: Surgically absent ADRENAL GLANDS: No significant masses or asymmetry. RIGHT KIDNEY AND URETER: No solid masses. No significant calcifications. No hydronephrosis or hyd roureter. LEFT KIDNEY AND URETER: No solid masses. No significant calcifications. No hydronephrosis or hydr oureter. AORTA AND VESSELS: No aneurysm. No dissection. Renal arteries, SMA, celiac without stenosis. RETROPERITONEUM: No retroperitoneal adenopathy, hemorrhage or masses. BOWEL AND PERITONEAL CAVITY: As above APPENDIX: Normal. PELVIS: No mass. No free fluid. Normal bladder. Normal size female pelvic organs ABDOMINAL WALL: No masses. No hernias. BONES: No significant or acute findings. OTHER: No other significant finding. IMPRESSION: Extensive postsurgical changes in the upper abdomen and along the anterior abdominal wal l. If there is clinical concern for enterocutaneous fistula, repeat CT scanning with oral contrast i s recommended No gross bowel obstruction on today's study. TECHNICAL DOCUMENTATION: JOB ID: [id number] Quality ID # [id number]: Final reports with documentation of one or more dose reduction techniques (e.g., Au tomated exposure control, adjustment of the mA and/or kV according to patient size, use of iterative reconstruction technique) 2010 [email or web address]- All Rights Reserved Reading location - IP/workstation name: [email or web address]
== END ==
LOC: RAD 07:06
PROVIDERS: ATTEND Nurse Practitioner Family
DX: T81.31XA Disruption of external operation (surgical) wound, not elsewhere classified, initial encounter (principal)
CPT/HCPCS: 74177; 82565

== ENCOUNTER → 2019-02-21 | Outpatient (CLI) | payer MEDICARE ==
[2019-02-21 09:13] LABS: ABSOLUTE EOSINOPHILS # (AUTO) 0.1 10^3/uL (0.0-0.6); ABSOLUTE LYMPHOCYTES (AUTO) 0.9 10^3/uL (0.5-4.7); ABSOLUTE MONOCYTES (AUTO) 0.2 10^3/uL (0.1-1.4); ABSOLUTE NEUT (AUTO) 3.5 10^3/uL (1.7-8.2); BASOPHILS % (AUTO) 0.5 % (0-2); EOSINOPHILS % (AUTO) 1.3 % (0-6); HEMOGLOBIN 13.5 g/dL (12.0-15.5); LYMPHOCYTES % (AUTO) 18.9 % (13-45); MEAN CORPUSCULAR HEMOGLOBIN 29.3 pg (27.0-33.4); MEAN CORPUSCULAR HGB CONC 33.7 g/dL (32.0-36.0); MEAN CORPUSCULAR VOLUME 87 fl (80-97); MONOCYTES % (AUTO) 5.1 % (3-13); PLATELET COUNT 218 10^3/uL (150-450); RED CELL DISTRIBUTION WIDTH 14.6 % (11.5-14.0); SEGMENTED NEUTROPHILS % (AUTO) 74.2 % (42-78); TOTAL CELLS COUNTED % (AUTO) 100 %; WHITE BLOOD COUNT 4.8 10^3/uL (4.0-10.5)
[2019-02-21 09:45] LABS: ALBUMIN 4.3 g/dL (3.5-5.0); ALKALINE PHOSPHATASE 92 U/L (38-126); ANION GAP 12 (5-19); ASPARTATE AMINO TRANSFERASE 26 U/L (14-36); BILIRUBIN,DIRECT 0.2 mg/dL (0.0-0.4); BILIRUBIN,TOTAL 0.7 mg/dL (0.2-1.3); BLOOD UREA NITROGEN 9 mg/dL (7-20); CALCIUM 9.6 mg/dL (8.4-10.2); CARBON DIOXIDE 27 mmol/L (22-30); CHLORIDE 104 mmol/L (98-107); GLUCOSE 126 mg/dL (75-110); POTASSIUM 3.6 mmol/L (3.6-5.0); TOTAL PROTEIN 7.2 g/dL (6.3-8.2)
[2019-02-21 09:46] LABS: C-REACTIVE PROTEIN < 5.0 mg/L (<10.0)
[2019-02-21 09:52] LABS: ERYTHROCYTE SEDIMENTATION RATE 29 mm/hr (0-30)
== END ==
LOC: WC 08:27
PROVIDERS: ATTEND Nurse Practitioner Family
DX: T81.31XA Disruption of external operation (surgical) wound, not elsewhere classified, initial encounter (principal)
CPT/HCPCS: 36415; 80053; 85025; 85652; 86140

== ENCOUNTER 2019-07-20 13:19 | Emergency (ER) | payer MEDICARE ==
--- NOTE | 2019-07-20 13:43 | ER Document Report ---
ED Medical Screen (RME) - General Chief Complaint: Abdominal Pain Stated Complaint: ABDOMINAL PAIN Time Seen by Provider: 07/20/19 13:42 Primary Care Provider: HAILE FELIX SCOOP DRIVER, SCOOP DRIVER [Primary Care Provider] - Follow up as needed Mode of Arrival: Wheelchair Information source: Patient Notes: 53-year-old female presents to ED for upper abdominal pain but no nausea vomitin g or diarrhea. She states that it This morning she got up and she had severe pain in her stomach. She states she has had a similar pain in the past and it was a blockage in her stomach. She states she had a gastric bypass and bypass have blocked of her stomach and caused her to swell up and have a lot of fluid in her stomach. She does have a PEG tube. Patient is alert oriented respirations regular nonlabored speaking in full sentences. She denies use of cigarettes alcohol or drugs. I have greeted and performed a rapid initial assessment of this patient. A comprehensive ED assessment and evaluation of the patient, analysis of test results and completion of medical decision making process will be conducted by an additional ED providers. TRAVEL OUTSIDE OF THE [place] IN LAST 30 DAYS: No - Related Data Allergies/Adverse Reactions: Penicillins Allergy (Severe, Verified 10/31/18 09:20) Anaphylaxis morphine Allergy (Intermediate, Verified 10/31/18 09:20) Generalized rash Past Medical History - Past Medical History Cardiac Medical History: Reports: Hx Hypercholesterolemia, Hx Hypertension Denies: Hx Coronary Artery Disease, Hx Heart Attack Pulmonary Medical History: Denies: Hx Asthma, Hx Bronchitis, Hx COPD, Hx Pneumonia Neurological Medical History: Denies: Hx Cerebrovascular Accident, Hx Seizures Renal/ Medical History: Denies: Hx Peritoneal Dialysis GI Medical History: Reports: Hx Diverticulitis, Hx Gastroesophageal Reflux Disease, Hx Irritable Bowel Musculoskeltal Medical History: Denies Hx Arthritis Psychiatric Medical History: Reports: Hx Anxiety, Hx Depression Past Surgical History: Reports: Hx Abdominal Surgery, Hx Appendectomy, Hx Cholecystectomy, Hx Gastric Bypass Surgery, Hx Tubal Ligation, Other - Revision of gastric bypass due to small bowel obstruction.. Denies: Hx Hysterectomy - Immunizations Hx Diphtheria, Pertussis, Tetanus Vaccination: No Physical Exam - Vital signs Vitals: Temp Pulse Resp BP Pulse Ox 97.5 F 72 20 128/77 H 99 07/20/19 13:22 07/20/19 13:22 07/20/19 13:22 07/20/19 13:22 07/20/19 13:22 Course - Vital Signs Vital signs: Temp Pulse Resp BP Pulse Ox 97.5 F 72 20 128/77 H 99 07/20/19 13:22 07/20/19 13:22 07/20/19 13:22 07/20/19 13:22 07/20/19 13:22 Doctor's Discharge - Discharge Referrals: HAILE FELIX SCOOP DRIVER, SCOOP DRIVER [Primary Care Provider] - Follow up as needed
[2019-07-20] MEDS ORDERED: NORMAL SALINE 1000 ML 1,000 ML IV ONE (13:46)
[2019-07-20 14:42] LABS: APPEARANCE,URINE CLEAR; BILIRUBIN,URINE NEGATIVE (NEGATIVE); COLOR,URINE YELLOW; GLUCOSE, URINE >=500 mg/dL (NEGATIVE); KETONES,URINE NEGATIVE (NEGATIVE); PROTEIN,URINE NEGATIVE (NEGATIVE); URINE SPECIFIC GRAVITY 1.033; UROBILINOGEN,URINE NEGATIVE mg/dL (<2.0)
[2019-07-20 14:51] LABS: ABSOLUTE LYMPHOCYTES (AUTO) 0.8 10^3/uL (0.5-4.7); ABSOLUTE MONOCYTES (AUTO) 0.4 10^3/uL (0.1-1.4); ABSOLUTE NEUT (AUTO) 5.7 10^3/uL (1.7-8.2); BASOPHILS % (AUTO) 0.3 % (0-2); EOSINOPHILS % (AUTO) 0.7 % (0-6); HEMATOCRIT 42.6 % (36.0-47.0); HEMOGLOBIN 14.4 g/dL (12.0-15.5); LYMPHOCYTES % (AUTO) 11.7 % (13-45); MEAN CORPUSCULAR HEMOGLOBIN 30.8 pg (27.0-33.4); MEAN CORPUSCULAR HGB CONC 33.8 g/dL (32.0-36.0); MEAN CORPUSCULAR VOLUME 91 fl (80-97); MONOCYTES % (AUTO) 5.1 % (3-13); PLATELET COUNT 175 10^3/uL (150-450); RED BLOOD COUNT 4.67 10^6/uL (3.72-5.28); RED CELL DISTRIBUTION WIDTH 15.2 % (11.5-14.0); SEGMENTED NEUTROPHILS % (AUTO) 82.2 % (42-78); TOTAL CELLS COUNTED % (AUTO) 100 %; WHITE BLOOD COUNT 6.9 10^3/uL (4.0-10.5)
[2019-07-20 15:42] LABS: ALBUMIN 4.8 g/dL (3.5-5.0); ALKALINE PHOSPHATASE 110 U/L (38-126); ANION GAP 8 (5-19); ASPARTATE AMINO TRANSFERASE 24 U/L (14-36); BILIRUBIN,TOTAL 0.7 mg/dL (0.2-1.3); BLOOD UREA NITROGEN 11 mg/dL (7-20); CALCIUM 9.8 mg/dL (8.4-10.2); CARBON DIOXIDE 33 mmol/L (22-30); CHLORIDE 98 mmol/L (98-107); GLUCOSE 132 mg/dL (75-110); POTASSIUM 3.7 mmol/L (3.6-5.0); TOTAL PROTEIN 7.9 g/dL (6.3-8.2)
[2019-07-20] MEDS ORDERED: FENTANYL CITRATE INJ/PF 100 MCG/2 ML AMPUL IV ONE ×3 (15:48→22:05)
--- NOTE | 2019-07-20 15:49 | ER Document Report ---
ED GI/ - General Chief Complaint: Abdominal Pain Stated Complaint: ABDOMINAL PAIN Time Seen by Provider: 07/20/19 13:42 Primary Care Provider: HAILE FELIX RAILROAD OPERATOR, RAILROAD OPERATOR [NURSE PRACTITIONER] - Follow up as needed Mode of Arrival: Wheelchair Notes: CHIEF COMPLAINT: Upper abdominal pain today HPI: 53-year-old female with history of epigastric pain that began today. Patient has a prior history of gastric bypass of unknown type that was done in [place]. Patient had blockage of the bypass in January of last year and was seen in [facility] for surgical evaluation of this. Patient states the discomfort that she has today is sharp in nature and feels similar. Denies chest pain shortness of breath. Denies lower abdominal discomfort. States she has been moving her bowels normally. denies nausea. Patient states that she does have a PEG tube that she had previously used but she is not currently using it just flushing and to keep it open ROS: See HPI - all other systems were reviewed and are otherwise negative Constitutional: no fever Eyes: no drainage, no blurred vision ENT: no runny nose, no sore throat Cardiovascular: no chest pain Resp: no SOB, no cough GI: no vomiting, no diarrhea, + abdominal pain : no dysuria Integumentary: no rash Allergy: no hives Musculoskeletal: no extremity pain or swelling Neurological: no numbness/tingling, no weakness MEDICATIONS: I agree with the patient medications as charted by the RN. ALLERGIES: I agree with the allergies as charted by the RN. PAST MEDICAL HISTORY/PAST SURGICAL HISTORY: Reviewed and agree as charted by RN. SOCIAL HISTORY: Reviewed and agree as charted by RN. FAMILY HISTORY: No significant familial comorbid conditions directly related to patient complaint EXAM: Reviewed vital signs as charted by RN. CONSTITUTIONAL: Alert and oriented and responds appropriately to questions. Well-appearing; well-nourished, mild distress secondary to pain HEAD: Normocephalic; atraumatic EYES: PERRL; Conjunctivae clear, sclerae non-icteric ENT: normal nose; no rhinorrhea; moist mucous membranes; pharynx without lesions noted, no uvula edema or deviation, no tonsillar hypertrophy, phonation normal NECK: Supple without meningismus; non-tender; no cervical lymphadenopathy, no masses CARD: RRR; no murmurs, no clicks, no rubs, no gallops; symmetric distal pulses RESP: Normal chest excursion without splinting or tachypnea; breath sounds clear and equal bilaterally; no wheezes, no rhonchi, no rales, pulse oximetry 97% on room air not hypoxic ABD/GI: Normal bowel sounds; non-distended; soft, mild tenderness through the epigastric region on palpation. PEG tube is noted in the left upper quadrant region without erythema. There is a wound over the lower abdomen with dressing present without discharge or drainage, no rebound, no guarding; no palpable organomegaly or masses. BACK: The back appears normal and is non-tender to palpation, there is no CVA tenderness EXT: Normal ROM in all joints; non-tender to palpation; no cyanosis, no effusions, no edema SKIN: Normal color for age and race; warm; dry; good turgor; no acute lesions noted NEURO: Moves all extremities equally; Motor and sensory function intact PSYCH: The patient's mood and manner are appropriate. Grooming and personal hygiene are appropriate. MDM: 53-year-old female with gastric bypass history presenting for upper abdomin al pain. Will obtain CT with contrast given the bypass history. She has had revision for possible blockage in January at [facility]. Patient is a poor historian with regards to the specifics of her bypass and following surgeries TRAVEL OUTSIDE OF THE [place] IN LAST 30 DAYS: No - Related Data Allergies/Adverse Reactions: Penicillins Allergy (Severe, Verified 10/31/18 09:20) Anaphylaxis morphine Allergy (Intermediate, Verified 10/31/18 09:20) Generalized rash Past Medical History - General Information source: Patient - Social History Smoking Status: Never Smoker Family History: Reviewed & Not Pertinent Patient has suicidal ideation: No Patient has homicidal ideation: No - Past Medical History Cardiac Medical History: Reports: Hx Hypercholesterolemia, Hx Hypertension Denies: Hx Coronary Artery Disease, Hx Heart Attack Pulmonary Medical History: Denies: Hx Asthma, Hx Bronchitis, Hx COPD, Hx Pneumonia Neurological Medical History: Denies: Hx Cerebrovascular Accident, Hx Seizures Renal/ Medical History: Denies: Hx Peritoneal Dialysis GI Medical History: Reports: Hx Diverticulitis, Hx Gastroesophageal Reflux Disease, Hx Irritable Bowel Musculoskeletal Medical History: Denies Hx Arthritis Psychiatric Medical History: Reports: Hx Anxiety, Hx Depression Past Surgical History: Reports: Hx Abdominal Surgery, Hx Appendectomy, Hx Cholecystectomy, Hx Gastric Bypass Surgery, Hx Tubal Ligation, Other - Revision of gastric bypass due to small bowel obstruction.. Denies: Hx Hysterectomy - Immunizations Hx Diphtheria, Pertussis, Tetanus Vaccination: No Physical Exam - Vital signs Vitals: Temp Pulse Resp BP Pulse Ox 97.5 F 72 20 128/77 H 99 07/20/19 13:22 07/20/19 13:22 07/20/19 13:22 07/20/19 13:22 07/20/19 13:22 Course - Re-evaluation Re-evalutation: 07/20/19 18:27 Patient lab work does not show acute emergent abnormalities she has nitrates in her urine I will add a urine culture. Patient CT suggests ileus or possible early small bowel obstruction. On review of the records patient has had prior bowel obstructions that required surgical intervention. I have placed a call to the bariatric surgery group at [facility]. 07/20/19 18:[address] Gallegos, Bariatric Surgery. Case was discussed, he has reviewed the images. Labs were reviewed. Accepts patient in transfer to [facility] surgical bed 07/20/19 18:56 I discussed transfer with the patient who is in agreement with this plan - Vital Signs Vital signs: Temp Pulse Resp BP Pulse Ox 98.1 F 70 16 118/74 99 07/20/19 18:43 07/20/19 18:43 07/20/19 18:43 07/20/19 18:43 07/20/19 18:43 - Laboratory Result Diagrams: 07/20/19 14:00 07/20/19 15:10 Laboratory results interpreted by me: 07/20/19 07/20/19 07/20/19 13:50 14:00 15:10 RDW 15.2 H Lymph % (Auto) 11.7 L Seg Neutrophils % 82.2 H Carbon Dioxide 33 H Glucose 132 H Urine Glucose (UA) >=500 H Urine Nitrite (Reflex) POSITIVE H Discharge - Discharge Clinical Impression: SBO (small bowel obstruction) Condition: Stable Disposition: [facility] Unit Admitted: Surgical Floor Referrals: HAILE FELIX RAILROAD OPERATOR, RAILROAD OPERATOR [NURSE PRACTITIONER] - Follow up as needed
--- NOTE | 2019-07-20 18:04 | RADIOLOGY REPORT (SQ) ---
EXAM DESCRIPTION: CT ABD/PELVIS WITH IV ORAL IMAGES COMPLETED DATE/TIME: 07/20/2019 5:45 pm REASON FOR STUDY: upper abd pain, hx gastric bypass, sbo COMPARISON: 02/20/2019. TECHNIQUE: CT scan of the abdomen and pelvis performed using helical scanning technique with oral co ntrast and with dynamic intravenous contrast injection. Images reviewed with lung, soft tissue, and b one windows. Reconstructed coronal and sagittal MPR images reviewed. Delayed images for evaluation of the urinary system also acquired. All images stored on PACS. All CT scanners at this facility use dose modulation, iterative reconstruction, and/or weight based d osing when appropriate to reduce radiation dose to as low as reasonably achievable (ALARA). [facility]: Dose Right [facility]: CareDose [facility]: Dose Right [facility]: Teradose 4D [facility]: Your [employer] CONTRAST TYPE AND DOSE: contrast/concentration: Isovue 350.00 mg/ml; Total Contrast Delivered: 83.0 ml; Total Saline Delivered: 69.0 ml RENAL FUNCTION: BUN 11 creatinine 0.56. RADIATION DOSE: CT Rad equipment meets quality standard of care and radiation dose reduction techniq ues were employed. CTDIvol: 9.6 - 13.7 mGy. DLP: 1245 mGy-cm.. LIMITATIONS: None. FINDINGS: LOWER CHEST: No significant findings. No nodules or infiltrates. LIVER: Normal size. Diffuse decreased attenuation. No masses. No dilated ducts. SPLEEN: Normal size. No focal lesions. PANCREAS: No masses. No significant calcifications. No adjacent inflammation or peripancreatic fluid collections. Pancreatic duct not dilated. GALLBLADDER: No identified stones by CT criteria. No inflammatory changes to suggest cholecystitis. ADRENAL GLANDS: No significant masses or asymmetry. RIGHT KIDNEY AND URETER: No solid masses. No significant calcifications. No hydronephrosis or hyd roureter. LEFT KIDNEY AND URETER: No solid masses. No significant calcifications. No hydronephrosis or hydr oureter. AORTA AND VESSELS: No aneurysm. No dissection. Renal arteries, SMA, celiac without stenosis. RETROPERITONEUM: No retroperitoneal adenopathy, hemorrhage or masses. BOWEL AND PERITONEAL CAVITY: Previous extensive gastric and bowel surgery. Gastrostomy tube. Mild d ilation of the proximal small bowel. No masses or inflammatory changes. No free fluid or peritoneal masses. APPENDIX: Not visualized. PELVIS: No mass. No free fluid. Normal bladder. ABDOMINAL WALL: No masses. No hernias. BONES: No significant or acute findings. OTHER: No other significant finding. IMPRESSION: 1. PREVIOUS EXTENSIVE GASTRIC AND BOWEL SURGERY. GASTROSTOMY TUBE. MILD NONSPECIFIC DILATION OF THE PROXIMAL SMALL BOWEL. CANNOT EXCLUDE A COMPONENT OF ILEUS OR POSSIBLE EARLY OR PARTIAL SMALL BOWEL OBSTRUCTION. 2. FATTY INFILTRATION OF THE LIVER. NO OTHER SIGNIFICANT OR ACUTE FINDING IN THE ABDOMEN OR PELVIS O N CT SCAN WITH IV CONTRAST. TECHNICAL DOCUMENTATION: JOB ID: [id number] Quality ID # [id number]: Final reports with documentation of one or more dose reduction techniques (e.g., Au tomated exposure control, adjustment of the mA and/or kV according to patient size, use of iterative reconstruction technique) 2010 [employer]- All Rights Reserved Reading location - IP/workstation name: [email or web address]
--- NOTE | 2019-07-20 19:17 | EKG REPORT ---
SEVERITY:- OTHERWISE NORMAL ECG - SINUS RHYTHM BORDERLINE LEFT AXIS DEVIATION : Confirmed by: Yang Vilchis MD 20-Jul-2019 19:16:51
[2019-07-21] MEDS ORDERED: FENTANYL CITRATE INJ/PF 100 MCG/2 ML AMPUL IV ONE ×4 (02:34→16:30)
[2019-07-21] MEDS ORDERED: NORMAL SALINE 1000 ML 1,000 ML IV PRN (07:26)
--- NOTE | 2019-07-21 08:28 | ER Document Report ---
Doctor's Note Notes: 07/21/19 08:28 Report and handoff received from ASHLEY Hicks. Patient sleeping at this time. [facility] called to confirm that patient should likely be transferred around 2 PM this afternoon. 07/21/19 09:27 Patient denies any abdominal tenderness at this time and no nausea or vomiting at this time. Patient with a UTI that is positive for nitrites. Urine culture is pending at this time. Review of patient's previous records demonstrates she has taken cephalosporins in the past and patient reports taking cephalosporins without adverse reaction. Rocephin IV ordered. 07/21/19 16:49 Report and handoff given to Jayla Marrero NP.
[2019-07-21] MEDS ORDERED: CEFTRIAXONE 1 GM/D5W RTU 1 GM/50 ML RTUPB IV ONE (09:25)
[2019-07-21 12:54] LABS: ABSOLUTE LYMPHOCYTES (AUTO) 0.7 10^3/uL (0.5-4.7); ABSOLUTE MONOCYTES (AUTO) 0.3 10^3/uL (0.1-1.4); BASOPHILS % (AUTO) 0.5 % (0-2); EOSINOPHILS % (AUTO) 0.6 % (0-6); HEMATOCRIT 35.4 % (36.0-47.0); HEMOGLOBIN 12.7 g/dL (12.0-15.5); LYMPHOCYTES % (AUTO) 14.4 % (13-45); MEAN CORPUSCULAR HEMOGLOBIN 31.1 pg (27.0-33.4); MEAN CORPUSCULAR HGB CONC 35.9 g/dL (32.0-36.0); MONOCYTES % (AUTO) 6.4 % (3-13); PLATELET COUNT 157 10^3/uL (150-450); RED BLOOD COUNT 4.09 10^6/uL (3.72-5.28); RED CELL DISTRIBUTION WIDTH 14.4 % (11.5-14.0); SEGMENTED NEUTROPHILS % (AUTO) 78.1 % (42-78); TOTAL CELLS COUNTED % (AUTO) 100 %; WHITE BLOOD COUNT 5.2 10^3/uL (4.0-10.5)
[2019-07-21 12:58] LABS: MEAN CORPUSCULAR VOLUME 87 fl (80-97)
[2019-07-21 13:18] LABS: ANION GAP 9 (5-19); BLOOD UREA NITROGEN 8 mg/dL (7-20); CALCIUM 8.6 mg/dL (8.4-10.2); CARBON DIOXIDE 27 mmol/L (22-30); CHLORIDE 101 mmol/L (98-107); GLUCOSE 97 mg/dL (75-110); POTASSIUM 3.5 mmol/L (3.6-5.0)
[2019-07-21] MEDS ORDERED: RINGERS SOLUTION,LACTATED 1,000 ML IV ONE (14:30)
[2019-07-21 17:00] VITALS: BP 113/59
--- NOTE | 2019-07-21 18:01 | ER Document Report ---
Doctor's Note Notes: 07/21/19 18:03 Patient reevaluated, she denies any needs at this time. Transport has arrived to transport her to [facility]. She is stable for transfer at this time.
== END 2019-07-21 18:25 | disposition short-term general hospital (02) ==
LOC: ER 13:19
DX: K56.609 Unspecified intestinal obstruction, unspecified as to partial versus complete obstruction (principal); R10.10 Upper abdominal pain, unspecified; I10 Essential (primary) hypertension; E78.00 Pure hypercholesterolemia, unspecified; Z88.0 Allergy status to penicillin; Z88.6 Allergy status to analgesic agent; Z98.84 Bariatric surgery status; Z90.49 Acquired absence of other specified parts of digestive tract
CPT/HCPCS: 93005; 96376; 99285; 96361; 96375; 96365; 36415; 87086; 83690; 85025; 87088; 80048; 80053; 81001; 84484; 87186; 74177; 93010; J3010 ×2; J7030 ×2; J7120; J0696

== ENCOUNTER → 2020-02-24 | Outpatient (CLI) | payer MEDICARE ==
--- NOTE | 2020-02-24 14:10 | WOMENS IMAGING REPORT ---
EXAM DESCRIPTION: 3D SCREENING MAMMO BILAT IMAGES COMPLETED DATE/TIME: 02/24/2020 1:47 pm REASON FOR STUDY: ROUTINE BILATERAL SCREENING;Z12.31 Z12.31 ENCNTR SCREEN MAMMOGRAM FOR MALIGNANT N EOPLASM OF OSCAR COMPARISON: Priors back to 2017 EXAM PARAMETERS: Views: Standard craniocaudal and mediolateral oblique views of each breast recorded using digital acquisition and breast tomosynthesis. Read with the assistance of CAD. .[facility] - [employer]ist Version 9.2 LIMITATIONS: None. FINDINGS: No suspicious masses, suspicious calcifications or architectural distortion. No areas of c oncern. IMPRESSION: NEGATIVE MAMMOGRAM. BIRADS 1. BREAST DENSITY: b. There are scattered areas of fibroglandular density. BIRAD: ASSESSMENT: 1 NEGATIVE RECOMMENDATION: ROUTINE SCREENING COMMENT: The patient has been notified of the results by letter per MQSA requirements. Additional no tification policies are in place for contacting patient with suspicious or incomplete findings. Quality ID #[id number]: The [employer] recommends an annual screening mammogram for women aged 40 years or over. This facility utilizes a reminder system to ensure that all patients receive reminder letters, and/or direct phone calls for appointments. This includes reminders for routine scr eening mammograms, diagnostic mammograms, or other Breast Imaging Interventions when appropriate. Th is patient will be placed in the appropriate reminder system. TECHNICAL DOCUMENTATION: FINDING NUMBER: (1) ASSESSMENT: (1) JOB ID: [id number] 2010 [email or web address]- All Rights Reserved Reading location - IP/workstation name: [email or web address]
== END ==
LOC: WI 15:42
PROVIDERS: ATTEND Family Medicine
DX: Z12.31 Encounter for screening mammogram for malignant neoplasm of breast (principal)
CPT/HCPCS: 77063; 77067